=== PATIENT | female | born 1955 | race Caucasian/White ===

== ENCOUNTER 2022-11-09 13:43 | Inpatient (IN) | payer OTHER, MEDICAID ==
[2022-11-09] VITALS (7 sets, daily range): BP systolic 160–183; BP diastolic 90–110; PULSE 68–80; RESP 20–22; TEMP 98–98.1; O2SAT 96
[~2022-11-09] VITALS: Ht 165.1 cm; Wt 80.3 kg
[2022-11-09 14:47] LABS: EOSINOPHILS % 2.1 % (0.0-5.0); HEMATOCRIT. 35.8 % (36.0-48.0); HEMOGLOBIN. 11.5 g/dL (12.0-16.0); LYMPHOCYTES % 19.8 % (20.0-50.0); MEAN CORPUSCULAR HEMOGLOBIN 26.8 pg (28.0-32.0); MEAN CORPUSCULAR VOLUME 83.8 fL (81.0-99.0); MEAN PLATELET VOLUME 8.7 fl (7.4-10.4); MONOCYTES % 8.2 % (2.0-8.0); NEUTROPHILS % 68.9 % (40.0-76.0); PLATELET 164 x1000/uL (130-400); RED BLOOD CELL COUNT 4.27 mill/uL (4.2-5.4); RED CELL DISTRIBUTION WIDTH 20.5 % (11.6-14.6)
[2022-11-09 14:54] LABS: CHLORIDE 94 mEq/L (98-107)
[2022-11-09] MEDS ORDERED: ONDANSETRON HCL 4MG/2ML INJ IV STA (15:38)
[2022-11-09] MEDS ORDERED: SODIUM CHLORIDE 0.9% 1,000 ML IV ONE (15:45)
[2022-11-09] MEDS ORDERED: CALCIUM GLUCONATE 100MG/ML 10ML VIAL IV ONE (15:45)
[2022-11-09] MEDS ORDERED: CEFTRIAXONE 1GM PREMIX 50 ML IV ONE (15:45)
[2022-11-09] MEDS ORDERED: SODIUM BICARBONATE 8.4% 1 MEQ/ML 50ML SYR IV ONE (15:45)
[2022-11-09] MEDS ORDERED: SODIUM POLYSTYRENE SULFONATE 15 G/60 ML BOT PO ONE (15:45)
[2022-11-09] MEDS ORDERED: ALBUTEROL (0.083%) 2.5MG/3ML NEB HHN ONE (15:45)
[2022-11-09] MEDS: MORPHINE SULFATE 4 MG/ML CPJ (NOT FOR IM USE) IV STA ×2 (16:00→16:12)
[2022-11-09] MEDS ORDERED: SODIUM BICARBONATE 8.4% 1 MEQ/ML 50ML SYR IV NR (16:00)
[2022-11-09 16:07] LABS: CLARITY URINE TURBID (CLEAR); COLOR URINE DARK YELLOW (YELLOW); KETONES URINE TRACE (NEGATIVE); LEUKOCYTE ESTERASE URINE 3+ (NEGATIVE); NITRITE URINE NEGATIVE (NEGATIVE); OCCULT BLOOD URINE 3+ (NEGATIVE); PROTEIN URINE 4+ (NEGATIVE); SPECIFIC GRAVITY URINE 1.027 (1.005-1.030)
[2022-11-09 20:09] LABS: HEPATITIS B SURFACE ANTIGEN NEGATIVE
[2022-11-09] MEDS: BLOOD SUGAR DIAGNOSTIC STRIP TEST SCH (21:00)
[2022-11-09] MEDS ORDERED: METO-385 PO (21:47)
[2022-11-09] MEDS ORDERED: MULT-1146 MT (21:49)
[2022-11-09] MEDS ORDERED: LISI20TA31 PO (21:49)
[2022-11-09] MEDS ORDERED: ASPI-1497 PO (21:49)
[2022-11-09] MEDS ORDERED: ACET-2708 PO (21:49)
[2022-11-09] MEDS ORDERED: ZOLP10TA2 PO (21:49)
[2022-11-09] MEDS ORDERED: B CM1TAB PO (21:49)
[2022-11-09] MEDS ORDERED: CEFEPIME 1,000 MG in DEXTROSE 5% WATER 50 ML IV SCH (22:15)
[2022-11-09] MEDS ORDERED: DEXTROSE 50% WATER 50ML SYRINGE IV PRN (22:15)
[2022-11-09] MEDS ORDERED: ACETAMINOPHEN 500MG TABLET PO PRN (22:15)
[2022-11-09] MEDS: DIPHENHYDRAMINE 25MG CAPSULE PO PRN (22:44)
[2022-11-10] VITALS (9 sets, daily range): BP systolic 145–162; BP diastolic 77–96; PULSE 66–89; RESP 16–20; TEMP 96.8–99.1; O2SAT 97
[2022-11-10] MEDS: ZOLPIDEM TARTRATE 5MG TABLET PO PRN ×2 (00:21→21:26)
[2022-11-10] MEDS: INSULIN LISPRO 100 UNITS/ML SUBCUT SCH ×5 (00:22→21:00)
[2022-11-10] MEDS ORDERED: CEFEPIME 1,000 MG in DEXTROSE 5% WATER 50 ML IV SCH (00:30)
[2022-11-10] MEDS: BLOOD SUGAR DIAGNOSTIC STRIP TEST SCH ×4 (06:14→21:26)
[2022-11-10 06:37] LABS: BASOPHILS % 0.6 % (0.0-2.0); EOSINOPHILS % 3.2 % (0.0-5.0); HEMATOCRIT. 31.9 % (36.0-48.0); HEMOGLOBIN. 10.4 g/dL (12.0-16.0); LYMPHOCYTES % 18.2 % (20.0-50.0); MEAN CORPUSCULAR HEMOGLOBIN 27.3 pg (28.0-32.0); MEAN CORPUSCULAR VOLUME 83.9 fL (81.0-99.0); MEAN PLATELET VOLUME 8.8 fl (7.4-10.4); MONOCYTES % 7.8 % (2.0-8.0); NEUTROPHILS % 70.2 % (40.0-76.0); PLATELET 144 x1000/uL (130-400); RED CELL DISTRIBUTION WIDTH 20.2 % (11.6-14.6)
[2022-11-10] MEDS ORDERED: BLOOD SUGAR DIAGNOSTIC STRIP TEST SCH (07:10)
[2022-11-10] MEDS ORDERED: INSULIN LISPRO 100 UNITS/ML SUBCUT SCH (07:40)
[2022-11-10] MEDS ORDERED: LISINOPRIL 20MG TABLET PO SCH (09:00)
[2022-11-10] MEDS: METOPROLOL SUCCINATE 50MG ER TABLET PO SCH ×2 (09:00→18:14)
[2022-11-10] MEDS ORDERED: ASPIRIN 81MG EC TABLET PO SCH (09:00)
[2022-11-10] MEDS: DIPHENHYDRAMINE 25MG CAPSULE PO PRN ×3 (09:00→21:26)
[2022-11-10] MEDS ORDERED: FLUCONAZOLE 200MG/100ML PREMIX IV ONE (11:15)
[2022-11-10] MEDS ORDERED: DOCUSATE SODIUM 100MG CAPSULE PO PRN (11:15)
[2022-11-10] MEDS ORDERED: IPRATROPIUM/ALBUTEROL 0.5-3(2.5)MG/3ML NEB HHN PRN (11:15)
[2022-11-10] MEDS ORDERED: FLUCONAZOLE 200 MG/100ML BAG 100 ML IV NR (13:00)
[2022-11-10] MEDS: PIPERACILLIN/TAZOBACTAM 3.375 G in DEXTROSE 5% WATER 50 ML IV SCH ×2 (14:31→21:26)
[2022-11-10 17:31] LABS: INR 1.2; PARTIAL THROMBOPLASTIN TIME 27.3 sec (23.4-31.0); PROTHROMBIN TIME 12.3 sec (9.6-11.0)
[2022-11-11] VITALS (23 sets, daily range): BP systolic 122–163; BP diastolic 72–100; PULSE 65–87; RESP 12–20; TEMP 96.4–98.2
[2022-11-11] MEDS: BLOOD SUGAR DIAGNOSTIC STRIP TEST SCH ×4 (06:30→21:05)
[2022-11-11] MEDS: INSULIN LISPRO 100 UNITS/ML SUBCUT SCH ×4 (06:30→21:04)
[2022-11-11 07:07] LABS: BASOPHILS % 0.8 % (0.0-2.0); HEMATOCRIT. 33.4 % (36.0-48.0); HEMOGLOBIN. 10.8 g/dL (12.0-16.0); LYMPHOCYTES % 21.5 % (20.0-50.0); MEAN CORPUSCULAR HEMOGLOBIN 27.1 pg (28.0-32.0); MEAN CORPUSCULAR VOLUME 83.6 fL (81.0-99.0); MEAN PLATELET VOLUME 8.7 fl (7.4-10.4); MONOCYTES % 8.5 % (2.0-8.0); NEUTROPHILS % 62.2 % (40.0-76.0); PLATELET 150 x1000/uL (130-400); RED BLOOD CELL COUNT 3.99 mill/uL (4.2-5.4); RED CELL DISTRIBUTION WIDTH 20.5 % (11.6-14.6)
[2022-11-11] MEDS ORDERED: LIDOCAINE HCL 1% 10 MG/ML 10ML VIAL ONE (08:24)
[2022-11-11] MEDS: PIPERACILLIN/TAZOBACTAM 3.375 G in DEXTROSE 5% WATER 50 ML IV SCH ×2 (09:15→20:51)
[2022-11-11] MEDS ORDERED: FENTANYL CITRATE/PF 50MCG/ML 2ML VIAL IV NR (09:56)
[2022-11-11] MEDS ORDERED: FENTANYL CITRATE/PF 50MCG/ML 2ML VIAL ONE (09:56)
[2022-11-11] MEDS: METOPROLOL SUCCINATE 50MG ER TABLET PO SCH ×2 (12:42→20:50)
[2022-11-11] MEDS: DIPHENHYDRAMINE 25MG CAPSULE PO PRN ×2 (13:47→21:05)
[2022-11-11] MEDS: ACETAMINOPHEN 325MG TABLET PO PRN ×2 (13:47→18:54)
[2022-11-11] MEDS: ZOLPIDEM TARTRATE 5MG TABLET PO PRN (20:50)
[2022-11-12] VITALS: BP 149/80; PULSE 88; RESP 20; TEMP 98
[2022-11-12 04:00] VITALS: BP 156/83; PULSE 68; RESP 18; TEMP 97.8
[2022-11-12] MEDS: DIPHENHYDRAMINE 25MG CAPSULE PO PRN ×3 (06:00→20:38)
[2022-11-12] MEDS: ACETAMINOPHEN 325MG TABLET PO PRN ×3 (06:00→20:29)
[2022-11-12] MEDS: INSULIN LISPRO 100 UNITS/ML SUBCUT SCH ×4 (06:03→21:00)
[2022-11-12] MEDS: BLOOD SUGAR DIAGNOSTIC STRIP TEST SCH ×4 (06:03→20:37)
[2022-11-12 08:00] VITALS: BP 146/93; PULSE 62; RESP 18; TEMP 96.8
[2022-11-12] MEDS: PIPERACILLIN/TAZOBACTAM 3.375 G in DEXTROSE 5% WATER 50 ML IV SCH (08:51)
[2022-11-12] MEDS: METOPROLOL SUCCINATE 50MG ER TABLET PO SCH ×2 (08:54→20:37)
[2022-11-12 12:00] VITALS: BP 150/85; PULSE 67; RESP 22; TEMP 96.6
[2022-11-12] MEDS ORDERED: HYDRALAZINE 20MG/ML VIAL IV NR (12:00)
[2022-11-12] MEDS: SEVELAMER CARBONATE 800 MG TABLET PO SCH ×2 (12:53→18:37)
[2022-11-12] MEDS ORDERED: CEFTRIAXONE 1GM PREMIX 50 ML IV SCH (15:00)
[2022-11-12] MEDS ORDERED: SODIUM POLYSTYRENE SULFONATE 15 G/60 ML BOT PO NR (15:30)
[2022-11-12 15:42] LABS: BG BASE EXCESS -4.6 mmol/L (-2.0-2.0); BG CARBOXYHEMOGLOBIN 1.6 % (0.5-1.5); BG DEOXYHEMOGLOBIN 4.3 % (0.0-5.0); BG HCO3 ACT 19.5 mmol/L (22.0-26.0); BG METHEMOGLOBIN 0.3 % (0.0-1.5); BG OXYGEN SATURATION 95.6 % (92.0-98.5); BG OXYHEMOGLOBIN 93.8 % (94.0-97.0); BG PCO2 33.1 mmHg (35.0-45.0); BG PH 7.387 (7.350-7.450); BG PO2 81.4 mmHg (75.0-100.0); BG SAMPLE SITE RIGHT BRACHIAL; BG TOTAL HEMOGLOBIN 13.1 g/dL (12.0-18.0); BG VENT MODE ROOM AIR
[2022-11-12 16:00] VITALS: BP 153/91; PULSE 62; RESP 20; TEMP 97
[2022-11-12 16:06] LABS: EOSINOPHILS % 5.8 % (0.0-5.0); HEMATOCRIT. 34.4 % (36.0-48.0); HEMOGLOBIN. 11.2 g/dL (12.0-16.0); MEAN CORPUSCULAR HEMOGLOBIN 27.6 pg (28.0-32.0); MEAN CORPUSCULAR VOLUME 84.9 fL (81.0-99.0); MEAN PLATELET VOLUME 8.6 fl (7.4-10.4); MONOCYTES % 9.8 % (2.0-8.0); NEUTROPHILS % 58.4 % (40.0-76.0); PLATELET 148 x1000/uL (130-400); RED BLOOD CELL COUNT 4.05 mill/uL (4.2-5.4); RED CELL DISTRIBUTION WIDTH 20.4 % (11.6-14.6)
[2022-11-12 20:00] VITALS: BP 150/97; PULSE 66; RESP 16; TEMP 97.4
[2022-11-12] MEDS: ZOLPIDEM TARTRATE 5MG TABLET PO PRN (20:38)
[2022-11-12] MEDS: ONDANSETRON HCL 4MG/2ML INJ IV PRN (20:42)
[2022-11-12] MEDS ORDERED: CEFEPIME 1,000 MG in DEXTROSE 5% WATER 50 ML IV SCH (21:00)
[2022-11-13] VITALS (9 sets, daily range): BP systolic 135–168; BP diastolic 80–108; PULSE 62–85; RESP 16–20; TEMP 96.9–98; O2SAT 97
[2022-11-13] MEDS: BLOOD SUGAR DIAGNOSTIC STRIP TEST SCH ×2 (06:00→12:34)
[2022-11-13] MEDS: INSULIN LISPRO 100 UNITS/ML SUBCUT SCH ×2 (06:00→12:34)
[2022-11-13] MEDS: SEVELAMER CARBONATE 800 MG TABLET PO SCH ×3 (07:40→12:36)
[2022-11-13 07:51] LABS: BASOPHILS % 0.9 % (0.0-2.0); EOSINOPHILS % 6.4 % (0.0-5.0); HEMATOCRIT. 35.7 % (36.0-48.0); HEMOGLOBIN. 11.7 g/dL (12.0-16.0); LYMPHOCYTES % 33.3 % (20.0-50.0); MEAN CORPUSCULAR HEMOGLOBIN 27.6 pg (28.0-32.0); MEAN CORPUSCULAR VOLUME 84.3 fL (81.0-99.0); MEAN PLATELET VOLUME 8.8 fl (7.4-10.4); MONOCYTES % 9.1 % (2.0-8.0); NEUTROPHILS % 50.3 % (40.0-76.0); PLATELET 148 x1000/uL (130-400); RED BLOOD CELL COUNT 4.24 mill/uL (4.2-5.4); RED CELL DISTRIBUTION WIDTH 19.8 % (11.6-14.6)
[2022-11-13] MEDS: ONDANSETRON HCL 4MG/2ML INJ IV PRN (08:05)
[2022-11-13] MEDS: METOPROLOL SUCCINATE 50MG ER TABLET PO SCH (10:00)
[2022-11-13] MEDS ORDERED: LEVO250T74 MT (13:15)
== END 2022-11-13 16:30 | disposition home or self-care (01) | DRG 673 ==
LOC: ER 13:43 → 8WST 18:51 → EDBEDREQTM 19:02 → EDBEDREQ 19:02 → ENRESERV 19:35
PROVIDERS: ADMIT Internal Medicine; ATTEND Internal Medicine
PROC: 5A1D70Z Performance of Urinary Filtration, Intermittent, Less than 6 Hours Per Day (ICD-10-PCS; 2022-11-09)
PROC: 5A1D70Z Performance of Urinary Filtration, Intermittent, Less than 6 Hours Per Day (ICD-10-PCS; 2022-11-10)
PROC: 0JH63XZ Insertion of Tunneled Vascular Access Device into Chest Subcutaneous Tissue and Fascia, Percutaneous Approach (ICD-10-PCS; principal; 2022-11-11)
PROC: 02HV33Z Insertion of Infusion Device into Superior Vena Cava, Percutaneous Approach (ICD-10-PCS; 2022-11-11)
PROC: B5181ZA Fluoroscopy of Superior Vena Cava using Low Osmolar Contrast, Guidance (ICD-10-PCS; 2022-11-11)
PROC: 5A1D70Z Performance of Urinary Filtration, Intermittent, Less than 6 Hours Per Day (ICD-10-PCS; 2022-11-12)
DX: I12.0 Hypertensive chronic kidney disease with stage 5 chronic kidney disease or end stage renal disease (principal); N18.6 End stage renal disease; N13.6 Pyonephrosis; E87.1 Hypo-osmolality and hyponatremia; E87.20 Acidosis, unspecified; E87.5 Hyperkalemia; E11.22 Type 2 diabetes mellitus with diabetic chronic kidney disease; E87.8 Other disorders of electrolyte and fluid balance, not elsewhere classified; E78.00 Pure hypercholesterolemia, unspecified; J44.9 Chronic obstructive pulmonary disease, unspecified; Z90.49 Acquired absence of other specified parts of digestive tract; Z99.2 Dependence on renal dialysis
CPT/HCPCS: 36415; 36558; 36589; 36600; 71045; 74176; 77001; 80048; 80053; 80061; 81003; 82375; 82805; 82962; 83036; 83605; 83880; 84100; 84132; 84145; 84484; 85025; 86705; 86709; 86803; 87186; 87340; 90935; 93306; 94640; 94644; 99152; 99153; 99291; C1750; C1769; J0360; J0610; J0692; J0696; J1450; J1642; J1815; J2270; J2405; J2543; J3010; J3490; J7030; J7060; Q0163; G0500

== ENCOUNTER 2023-04-26 12:55 | Inpatient (IN) | payer MEDICARE, MEDICAID ==
[~2023-04-26] VITALS: Ht 165.1 cm; Wt 77.3 kg
[~2023-04-26 12:55] MED LIST: ACET-2708 PO; ASPI-1497 PO; B CM1TAB PO; LEVO250T74 MT; LISI20TA31 PO; METO-385 PO; MULT-1146 MT; ZOLP10TA2 PO
[2023-04-26 17:22] LABS: BASOPHILS % 0.6 % (0.0-2.0); EOSINOPHILS % 2.8 % (0.0-5.0); HEMOGLOBIN. 11.7 g/dL (12.0-16.0); LYMPHOCYTES % 16.3 % (20.0-50.0); MEAN CORPUSCULAR HEMOGLOBIN 30.1 pg (28.0-32.0); MEAN CORPUSCULAR HGB CONC 32.4 g/dL (31.0-37.0); MEAN CORPUSCULAR VOLUME 93.1 fL (81.0-99.0); MEAN PLATELET VOLUME 8.3 fl (7.4-10.4); MONOCYTES % 8.5 % (2.0-8.0); NEUTROPHILS % 71.8 % (40.0-76.0); PLATELET 175 x1000/uL (130-400); RED BLOOD CELL COUNT 3.87 mill/uL (4.2-5.4); WHITE BLOOD COUNT 8.3 x1000/uL (4.5-11.0)
[2023-04-26 17:40] LABS: ALANINE AMINOTRANSFERASE 44 IU/L (10-49); ALBUMIN 4.3 g/dL (3.2-4.8); ASPARTATE AMINOTRANSFERASE 46 IU/L (<34); BILIRUBIN TOTAL 0.4 mg/dL (0.1-1.0); CALCIUM 9.2 mg/dL (8.7-10.4); CARBON DIOXIDE 28 mEq/L (21-32); CHLORIDE 96 mEq/L (98-107); CREATININE 4.5 mg/dL (0.6-1.0); GLUCOSE 229 mg/dL (70-105); POTASSIUM 5.5 mEq/L (3.5-5.1); PROTEIN TOTAL 7.2 g/dL (6.0-8.3); SODIUM 133 mEq/L (136-145); TROPONIN I HIGH SENSITIVITY 19 ng/L (3.0-34); UREA NITROGEN BLOOD 46 mg/dL (9-23)
[2023-04-27] VITALS (12 sets, daily range): BP systolic 144–191; BP diastolic 78–109; PULSE 60–88; RESP 14–21; TEMP 96.7–98.8
[2023-04-27] MEDS ORDERED: DEXTROSE 50% WATER 50ML SYRINGE IV PRN ×2 (04:15→05:45)
[2023-04-27] MEDS: CLONIDINE 0.1MG TABLET PO PRN ×2 (04:38→23:00)
[2023-04-27] MEDS: HYDROCODONE/ACETAMINOPHEN 5/325MG TABLET PO PRN ×2 (04:39→13:13)
[2023-04-27] MEDS ORDERED: ONDANSETRON HCL 4MG/2ML INJ IV PRN (05:45)
[2023-04-27] MEDS ORDERED: MAGNESIUM/ALUMINUM HYDROXIDE/SIMETHICONE 30ML UDC PO PRN (05:45)
[2023-04-27] MEDS: BLOOD SUGAR DIAGNOSTIC STRIP TEST SCH ×3 (06:34→21:00)
[2023-04-27] MEDS ORDERED: OMEPRAZOLE 20MG CAPSULE EXTENDED RELEASE PO SCH (07:20)
[2023-04-27] MEDS: INSULIN LISPRO 100 UNITS/ML SUBCUT SCH ×3 (07:50→21:00)
[2023-04-27 09:16] LABS: BASOPHILS % 0.7 % (0.0-2.0); EOSINOPHILS % 3.1 % (0.0-5.0); HEMATOCRIT. 34.1 % (36.0-48.0); HEMOGLOBIN. 11.2 g/dL (12.0-16.0); LYMPHOCYTES % 25.8 % (20.0-50.0); MEAN CORPUSCULAR HEMOGLOBIN 30.4 pg (28.0-32.0); MEAN CORPUSCULAR HGB CONC 32.8 g/dL (31.0-37.0); MEAN CORPUSCULAR VOLUME 92.9 fL (81.0-99.0); MEAN PLATELET VOLUME 8.1 fl (7.4-10.4); MONOCYTES % 11.3 % (2.0-8.0); NEUTROPHILS % 59.1 % (40.0-76.0); PLATELET 152 x1000/uL (130-400); RED BLOOD CELL COUNT 3.67 mill/uL (4.2-5.4); RED CELL DISTRIBUTION WIDTH 15.7 % (11.6-14.6); WHITE BLOOD COUNT 7.8 x1000/uL (4.5-11.0)
[2023-04-27] MEDS: ENOXAPARIN 30MG/0.3ML SYR SUBCUT SCH (09:30)
[2023-04-27 09:31] LABS: ALANINE AMINOTRANSFERASE 39 IU/L (10-49); ALBUMIN 3.9 g/dL (3.2-4.8); ASPARTATE AMINOTRANSFERASE 37 IU/L (<34); BILIRUBIN TOTAL 0.3 mg/dL (0.1-1.0); CALCIUM 8.6 mg/dL (8.7-10.4); CARBON DIOXIDE 27 mEq/L (21-32); CHLORIDE 96 mEq/L (98-107); GLUCOSE 208 mg/dL (70-105); POTASSIUM 5.7 mEq/L (3.5-5.1); PROTEIN TOTAL 7.3 g/dL (6.0-8.3); SODIUM 132 mEq/L (136-145); UREA NITROGEN BLOOD 63 mg/dL (9-23)
[2023-04-27 09:35] LABS: CREATININE 5.6 mg/dL (0.6-1.0)
[2023-04-27] MEDS ORDERED: ZOLPIDEM TARTRATE 5MG TABLET PO PRN ×2 (11:00→12:15)
[2023-04-27] MEDS ORDERED: NALOXONE HCL 0.4MG/ML VIAL IV PRN (16:45)
[2023-04-27 17:03] LABS: HEPATITIS A AB IGM NEGATIVE (Negative); HEPATITIS B CORE AB IGM NEGATIVE (Negative); HEPATITIS B SURFACE ANTIGEN NEGATIVE (Negative); HEPATITIS C AB NON REACTIVE (Neg) (Negative)
[2023-04-27] MEDS ORDERED: DIPHENHYDRAMINE 50MG/ML VIAL IV NR (22:56)
[2023-04-27] MEDS: ACETAMINOPHEN 325MG TABLET PO PRN (23:00)
[2023-04-28 04:00] VITALS: BP 147/89; PULSE 67; RESP 15; TEMP 97.5
[2023-04-28] MEDS: BLOOD SUGAR DIAGNOSTIC STRIP TEST SCH ×3 (07:20→21:18)
[2023-04-28 07:27] LABS: BASOPHILS % 0.8 % (0.0-2.0); EOSINOPHILS % 6.9 % (0.0-5.0); HEMATOCRIT. 31.1 % (36.0-48.0); HEMOGLOBIN. 10.3 g/dL (12.0-16.0); LYMPHOCYTES % 26.7 % (20.0-50.0); MEAN CORPUSCULAR HEMOGLOBIN 30.7 pg (28.0-32.0); MEAN CORPUSCULAR HGB CONC 33.2 g/dL (31.0-37.0); MEAN CORPUSCULAR VOLUME 92.3 fL (81.0-99.0); MEAN PLATELET VOLUME 8.7 fl (7.4-10.4); MONOCYTES % 9.8 % (2.0-8.0); NEUTROPHILS % 55.8 % (40.0-76.0); PLATELET 133 x1000/uL (130-400); RED BLOOD CELL COUNT 3.36 mill/uL (4.2-5.4); RED CELL DISTRIBUTION WIDTH 15.4 % (11.6-14.6); WHITE BLOOD COUNT 6.4 x1000/uL (4.5-11.0)
[2023-04-28 08:00] VITALS: BP 141/77; PULSE 72; RESP 17; TEMP 97.9
[2023-04-28] MEDS: INSULIN LISPRO 100 UNITS/ML SUBCUT SCH ×3 (08:50→21:46)
[2023-04-28] MEDS: ENOXAPARIN 30MG/0.3ML SYR SUBCUT SCH (09:22)
[2023-04-28] MEDS: ASPIRIN 81MG EC TABLET PO SCH (09:22)
[2023-04-28] MEDS: MULTIVITAMINS,THER W-MINERALS TABLET PO SCH (09:22)
[2023-04-28 12:00] VITALS: BP 140/89; PULSE 67; RESP 18; TEMP 97.7
[2023-04-28 15:21] LABS: ALANINE AMINOTRANSFERASE 31 IU/L (10-49); ALBUMIN 3.5 g/dL (3.2-4.8); ASPARTATE AMINOTRANSFERASE 26 IU/L (<34); BILIRUBIN DIRECT 0.2 mg/dL (<=3.0); BILIRUBIN TOTAL 0.3 mg/dL (0.1-1.0); CARBON DIOXIDE 26 mEq/L (21-32); CHLORIDE 98 mEq/L (98-107); CHOLESTEROL 90 mg/dL (<200); GLUCOSE 214 mg/dL (70-105); HDL CHOLESTEROL 39 mg/dL (>65); LDL CHOLESTEROL 40 mg/dL (5-100); PHOSPHORUS 4.7 mg/dL (2.5-4.9); POTASSIUM 5.5 mEq/L (3.5-5.1); PROTEIN TOTAL 6.5 g/dL (6.0-8.3); SODIUM 134 mEq/L (136-145); T4 FREE 0.34 ng/dL (0.89-1.76); THYROID STIMULATING HORMONE 147.83 uIU/mL (0.55-4.78); TRIGLYCERIDE 110 mg/dL (0-150); TROPONIN I HIGH SENSITIVITY 16 ng/L (3.0-34); UREA NITROGEN BLOOD 66 mg/dL (9-23)
[2023-04-28 15:24] LABS: CREATININE 5.5 mg/dL (0.6-1.0)
[2023-04-28 16:00] VITALS: BP 158/95; PULSE 74; RESP 18; TEMP 97.6
[2023-04-28 20:00] VITALS: BP 173/96; PULSE 89; RESP 20; TEMP 96.5
[2023-04-28] MEDS: CLONIDINE 0.1MG TABLET PO PRN (21:32)
[2023-04-28] MEDS: ZOLPIDEM TARTRATE 5MG TABLET PO PRN (21:33)
[2023-04-28] MEDS: ACETAMINOPHEN 325MG TABLET PO PRN (21:33)
[2023-04-29] VITALS (12 sets, daily range): BP systolic 137–168; BP diastolic 78–111; PULSE 63–79; RESP 16–20; TEMP 96.2–98.4
[2023-04-29 07:47] LABS: BASOPHILS % 0.3 % (0.0-2.0); EOSINOPHILS % 6.4 % (0.0-5.0); HEMATOCRIT. 32.5 % (36.0-48.0); HEMOGLOBIN. 10.7 g/dL (12.0-16.0); LYMPHOCYTES % 21.4 % (20.0-50.0); MEAN CORPUSCULAR HEMOGLOBIN 30.6 pg (28.0-32.0); MEAN CORPUSCULAR VOLUME 92.6 fL (81.0-99.0); MONOCYTES % 9.2 % (2.0-8.0); NEUTROPHILS % 62.7 % (40.0-76.0); PLATELET 146 x1000/uL (130-400); RED BLOOD CELL COUNT 3.51 mill/uL (4.2-5.4); RED CELL DISTRIBUTION WIDTH 15.7 % (11.6-14.6); WHITE BLOOD COUNT 6.7 x1000/uL (4.5-11.0)
[2023-04-29] MEDS: INSULIN LISPRO 100 UNITS/ML SUBCUT SCH ×4 (07:50→21:00)
[2023-04-29] MEDS: BLOOD SUGAR DIAGNOSTIC STRIP TEST SCH ×4 (07:57→21:00)
[2023-04-29 08:55] LABS: CALCIUM 8.6 mg/dL (8.7-10.4); POTASSIUM 5.4 mEq/L (3.5-5.1)
[2023-04-29] MEDS ORDERED: FAMOTIDINE 20MG TABLET PO SCH (09:00)
[2023-04-29 09:09] LABS: CREATININE 5.5 mg/dL (0.6-1.0)
[2023-04-29] MEDS: MULTIVITAMINS,THER W-MINERALS TABLET PO SCH (09:28)
[2023-04-29] MEDS: ASPIRIN 81MG EC TABLET PO SCH (09:28)
[2023-04-29] MEDS: ENOXAPARIN 30MG/0.3ML SYR SUBCUT SCH (09:29)
[2023-04-29] MEDS: HYDROCODONE/ACETAMINOPHEN 5/325MG TABLET PO PRN (12:36)
[2023-04-29] MEDS: CLONIDINE 0.1MG TABLET PO PRN (22:27)
[2023-04-30] VITALS: BP 170/92; PULSE 61; RESP 16; TEMP 97.1
[2023-04-30] MEDS: ZOLPIDEM TARTRATE 5MG TABLET PO PRN (00:11)
[2023-04-30 08:00] VITALS: BP 175/106; PULSE 83; RESP 19; TEMP 96.4
[2023-04-30] MEDS: ASPIRIN 81MG EC TABLET PO SCH (09:29)
[2023-04-30] MEDS: MULTIVITAMINS,THER W-MINERALS TABLET PO SCH (09:29)
[2023-04-30] MEDS: ENOXAPARIN 30MG/0.3ML SYR SUBCUT SCH (09:30)
[2023-04-30 10:51] VITALS: BP 144/87; PULSE 87; TEMP 98.8; O2SAT 98
[2023-04-30 12:00] VITALS: BP 148/91; PULSE 71; RESP 19; TEMP 97.7
== END 2023-04-30 14:47 | disposition home health service (06) | DRG 73 ==
LOC: ER 12:55 → EDBEDREQ 21:44 → EDBEDREQTM 21:44 → MICUSO 23:18 → 6EST 04-27 00:22
PROVIDERS: ADMIT Internal Medicine Nephrology; ATTEND Internal Medicine Nephrology
PROC: 5A1D70Z Performance of Urinary Filtration, Intermittent, Less than 6 Hours Per Day (ICD-10-PCS; principal; 2023-04-27)
PROC: 5A1D70Z Performance of Urinary Filtration, Intermittent, Less than 6 Hours Per Day (ICD-10-PCS; 2023-04-29)
DX: G90.8 Other disorders of autonomic nervous system (principal); N18.6 End stage renal disease; I12.0 Hypertensive chronic kidney disease with stage 5 chronic kidney disease or end stage renal disease; H93.11 Tinnitus, right ear; E78.00 Pure hypercholesterolemia, unspecified; E11.65 Type 2 diabetes mellitus with hyperglycemia; D63.8 Anemia in other chronic diseases classified elsewhere; E11.22 Type 2 diabetes mellitus with diabetic chronic kidney disease; E87.5 Hyperkalemia; F41.9 Anxiety disorder, unspecified; H54.61 Unqualified visual loss, right eye, normal vision left eye; Z86.73 Personal history of transient ischemic attack (TIA), and cerebral infarction without residual deficits; Z91.81 History of falling; Z99.2 Dependence on renal dialysis
CPT/HCPCS: 36415; 70551; 71045; 80048; 80053; 80061; 80076; 82962; 83036; 83735; 84100; 84439; 84443; 84484; 85025; 86705; 86709; 87340; 90935; 93005; 93306; 93970; 97110; 97116; 97162; 99291; J1200; J1650; J1815

== ENCOUNTER 2023-05-26 15:35 | Inpatient (IN) | payer MEDICARE, MEDICAID ==
[~2023-05-26] VITALS: Ht 165.1 cm; Wt 79.4 kg
[2023-05-26 17:50] LABS: BASOPHILS % 0.4 % (0.0-2.0); EOSINOPHILS % 3.6 % (0.0-5.0); HEMATOCRIT. 35.9 % (36.0-48.0); HEMOGLOBIN. 11.4 g/dL (12.0-16.0); LYMPHOCYTES % 15.4 % (20.0-50.0); MEAN CORPUSCULAR HEMOGLOBIN 30.5 pg (28.0-32.0); MEAN CORPUSCULAR HGB CONC 31.6 g/dL (31.0-37.0); MEAN CORPUSCULAR VOLUME 96.2 fL (81.0-99.0); MEAN PLATELET VOLUME 8.6 fl (7.4-10.4); MONOCYTES % 8.2 % (2.0-8.0); NEUTROPHILS % 72.4 % (40.0-76.0); PLATELET 168 x1000/uL (130-400); RED BLOOD CELL COUNT 3.73 mill/uL (4.2-5.4); RED CELL DISTRIBUTION WIDTH 16.8 % (11.6-14.6); WHITE BLOOD COUNT 10.7 x1000/uL (4.5-11.0)
[2023-05-26 18:05] LABS: ALANINE AMINOTRANSFERASE 31 IU/L (10-49); ALBUMIN 3.9 g/dL (3.2-4.8); ASPARTATE AMINOTRANSFERASE 51 IU/L (<34); BILIRUBIN TOTAL 0.4 mg/dL (0.1-1.0); CALCIUM 8.6 mg/dL (8.7-10.4); CARBON DIOXIDE 25 mEq/L (21-32); CHLORIDE 94 mEq/L (98-107); GLUCOSE 213 mg/dL (70-105); POTASSIUM 5.2 mEq/L (3.5-5.1); PROTEIN TOTAL 7.5 g/dL (6.0-8.3); SODIUM 131 mEq/L (136-145); UREA NITROGEN BLOOD 60 mg/dL (9-23)
[2023-05-26 18:10] LABS: CREATININE 5.4 mg/dL (0.6-1.0)
[2023-05-26] MEDS ORDERED: OXYCODONE HCL/ACETAMINOPHEN 5/325MG TABLET PO ONE (19:45)
[2023-05-26] MEDS ORDERED: VANCOMYCIN 1.25GM PMX (XELLIA) 250 ML IV SCH (19:45)
[2023-05-26] MEDS ORDERED: FUROSEMIDE 100MG/10ML VIAL IV STA (20:11)
[2023-05-26] MEDS ORDERED: FUROSEMIDE 40MG TABLET PO ONE (20:15)
[2023-05-26] MEDS ORDERED: ALBUTEROL (0.083%) 2.5MG/3ML NEB HHN ONE (20:15)
[2023-05-26] MEDS ORDERED: SODIUM POLYSTYRENE SULFONATE 15 G/60 ML BOT PO ONE (20:15)
[2023-05-26] MEDS ORDERED: FUROSEMIDE 40MG/4ML VIAL IV NR (20:45)
[2023-05-26] MEDS ORDERED: ONDANSETRON HCL 4MG/2ML INJ IV PRN (22:00)
[2023-05-26] MEDS ORDERED: IPRATROPIUM/ALBUTEROL 0.5-3(2.5)MG/3ML NEB NEB PRN (22:00)
[2023-05-26] MEDS: ENOXAPARIN 40MG/0.4ML SYR SUBCUT SCH (22:00)
[2023-05-26] MEDS ORDERED: MECLIZINE 25MG TABLET PO PRN (22:00)
[2023-05-26] MEDS ORDERED: MVI, ADULT NO.1 10 ML, FOLIC ACID 1 MG, THIAMINE HCL 100 MG in SODIUM CHLORIDE 0.9% 1,0... IV SCH ×4 (23:00)
[2023-05-27] VITALS (11 sets, daily range): BP systolic 132–178; BP diastolic 82–100; PULSE 65–77; RESP 18–20; TEMP 96.6–97.4
[2023-05-27] MEDS ORDERED: METFORMIN HCL 500MG TABLET PO ONE (01:00)
[2023-05-27] MEDS ORDERED: METOPROLOL TARTRATE 50MG TABLET PO ONE (01:00)
[2023-05-27] MEDS ORDERED: FUROSEMIDE 100MG/10ML VIAL IV NR (02:15)
[2023-05-27] MEDS ORDERED: OXYCODONE HCL/ACETAMINOPHEN 5/325MG TABLET PO NR (02:15)
[2023-05-27] MEDS ORDERED: METOPROLOL TARTRATE 50MG TABLET PO NR (02:15)
[2023-05-27] MEDS ORDERED: SODIUM POLYSTYRENE SULFONATE 15 G/60 ML BOT PO NR (02:15)
[2023-05-27] MEDS: MORPHINE SULFATE 2 MG/ML CPJ (NOT FOR IM USE) IV PRN ×3 (02:44→08:43)
[2023-05-27] MEDS ORDERED: NALOXONE HCL 0.4MG/ML VIAL IV PRN (07:30)
[2023-05-27] MEDS ORDERED: VANCOMYCIN 750MG PREMIX 150 ML IV SCH (21:00)
[2023-05-27 22:19] LABS: HEPATITIS A AB IGM NEGATIVE (Negative); HEPATITIS B CORE AB IGM NEGATIVE (Negative); HEPATITIS B SURFACE ANTIGEN NEGATIVE (Negative); HEPATITIS C AB NON REACTIVE (Neg) (Negative)
[2023-05-27] MEDS: ENOXAPARIN 40MG/0.4ML SYR SUBCUT SCH (22:20)
[2023-05-27] MEDS: HYDROCODONE/ACETAMINOPHEN 5/325MG TABLET PO PRN (22:20)
[2023-05-28] VITALS (16 sets, daily range): BP systolic 133–176; BP diastolic 71–104; PULSE 64–84; RESP 16–20; TEMP 96.1–98.7
[2023-05-28] MEDS ORDERED: CLONIDINE 0.1MG TABLET PO NR (00:45)
[2023-05-28] MEDS: HYDROCODONE/ACETAMINOPHEN 5/325MG TABLET PO PRN ×2 (14:30→22:47)
[2023-05-28] MEDS: ACETAMINOPHEN 325MG TABLET PO PRN (16:24)
[2023-05-28] MEDS: ENOXAPARIN 40MG/0.4ML SYR SUBCUT SCH (21:57)
[2023-05-29] VITALS (7 sets, daily range): BP systolic 109–177; BP diastolic 76–100; PULSE 62–79; RESP 18–20; TEMP 96.6–98.4
[2023-05-29 08:17] LABS: BASOPHILS % 0.5 % (0.0-2.0); EOSINOPHILS % 5.1 % (0.0-5.0); HEMATOCRIT. 31.8 % (36.0-48.0); HEMOGLOBIN. 10.5 g/dL (12.0-16.0); LYMPHOCYTES % 17.6 % (20.0-50.0); MEAN CORPUSCULAR HEMOGLOBIN 30.5 pg (28.0-32.0); MEAN CORPUSCULAR VOLUME 92.5 fL (81.0-99.0); MEAN PLATELET VOLUME 8.5 fl (7.4-10.4); MONOCYTES % 8.6 % (2.0-8.0); NEUTROPHILS % 68.2 % (40.0-76.0); PLATELET 151 x1000/uL (130-400); RED BLOOD CELL COUNT 3.44 mill/uL (4.2-5.4); RED CELL DISTRIBUTION WIDTH 16.6 % (11.6-14.6); WHITE BLOOD COUNT 7.5 x1000/uL (4.5-11.0)
[2023-05-29 09:22] LABS: CALCIUM 7.6 mg/dL (8.7-10.4); CARBON DIOXIDE 19 mEq/L (21-32); CHLORIDE 98 mEq/L (98-107); GLUCOSE 203 mg/dL (70-105); PHOSPHORUS 3.6 mg/dL (2.5-4.9); POTASSIUM 4.2 mEq/L (3.5-5.1); SODIUM 135 mEq/L (136-145); UREA NITROGEN BLOOD 59 mg/dL (9-23)
[2023-05-29 09:43] LABS: CREATININE 5.1 mg/dL (0.6-1.0)
[2023-05-29] MEDS: ACETAMINOPHEN 325MG TABLET PO PRN (10:01)
[2023-05-29] MEDS: LISINOPRIL 20MG TABLET PO SCH (12:15)
[2023-05-29] MEDS ORDERED: ACETAMINOPHEN 500MG TABLET PO PRN (12:15)
[2023-05-29] MEDS: ASPIRIN 81MG EC TABLET PO SCH (12:15)
[2023-05-29] MEDS: METOPROLOL TARTRATE 50MG TABLET PO SCH ×2 (14:00→21:08)
[2023-05-29] MEDS: SILVER SULFADIAZINE 1% CREAM 50GM TOP SCH ×2 (15:19→21:00)
[2023-05-29] MEDS: HYDROCODONE/ACETAMINOPHEN 5/325MG TABLET PO PRN (15:23)
[2023-05-29 17:10] LABS: PHOSPHORUS 3.5 mg/dL (2.5-4.9)
[2023-05-29] MEDS ORDERED: METOPROLOL TARTRATE 25MG TABLET PO SCH (21:00)
[2023-05-29] MEDS: ENOXAPARIN 40MG/0.4ML SYR SUBCUT SCH (21:04)
[2023-05-30] VITALS: BP 158/63; PULSE 66; RESP 20; TEMP 97.9
[2023-05-30 04:00] VITALS: BP 115/79; PULSE 66; RESP 18; TEMP 97.5
[2023-05-30] MEDS: LISINOPRIL 20MG TABLET PO SCH (09:00)
[2023-05-30] MEDS: ASPIRIN 81MG EC TABLET PO SCH (09:00)
[2023-05-30] MEDS: METOPROLOL TARTRATE 50MG TABLET PO SCH (09:00)
[2023-05-30] MEDS: SILVER SULFADIAZINE 1% CREAM 50GM TOP SCH ×2 (09:00→21:09)
[2023-05-30] MEDS: HYDROCODONE/ACETAMINOPHEN 5/325MG TABLET PO PRN (11:28)
[2023-05-30 12:00] VITALS: BP 150/100; PULSE 70; RESP 18; TEMP 97.1
[2023-05-30] MEDS ORDERED: SODIUM CHLORIDE 0.9% 500 ML IV ONE (16:00)
[2023-05-30] MEDS: ENOXAPARIN 30MG/0.3ML SYR SUBCUT SCH (17:00)
[2023-05-30] MEDS: ACETAMINOPHEN 325MG TABLET PO PRN ×2 (17:24→21:09)
[2023-05-30 20:00] VITALS: BP_SYST 151; BP_SYST 152; BP_SYST 159; BP_DIAS 91; BP_DIAS 94; PULSE 64; RESP 19; TEMP 96.1
[2023-05-31] VITALS (15 sets, daily range): BP systolic 135–166; BP diastolic 76–107; PULSE 62–82; RESP 16–20; TEMP 96.1–97.9
[2023-05-31] MEDS: SILVER SULFADIAZINE 1% CREAM 50GM TOP SCH ×2 (09:00→20:22)
[2023-05-31] MEDS: METOPROLOL SUCCINATE 50MG ER TABLET PO SCH (10:24)
[2023-05-31] MEDS: LISINOPRIL 20MG TABLET PO SCH (10:24)
[2023-05-31] MEDS: ASPIRIN 81MG EC TABLET PO SCH (10:24)
[2023-05-31] MEDS: ACETAMINOPHEN 325MG TABLET PO PRN ×2 (10:38→21:37)
[2023-05-31 14:44] LABS: CALCIUM 7.7 mg/dL (8.7-10.4); CARBON DIOXIDE 13 mEq/L (21-32); CHLORIDE 98 mEq/L (98-107); GLUCOSE 175 mg/dL (70-105); POTASSIUM 5.9 mEq/L (3.5-5.1); SODIUM 131 mEq/L (136-145); UREA NITROGEN BLOOD 81 mg/dL (9-23)
[2023-05-31 15:27] LABS: THYROID STIMULATING HORMONE > 100.00 uIU/mL (0.55-4.78)
[2023-05-31] MEDS: ENOXAPARIN 30MG/0.3ML SYR SUBCUT SCH (18:32)
[2023-05-31] MEDS: ZOLPIDEM TARTRATE 5MG TABLET PO PRN (21:23)
[2023-06-01] VITALS (7 sets, daily range): BP systolic 152–175; BP diastolic 97–111; PULSE 58–70; RESP 16–22; TEMP 96.8–97.7; O2SAT 100
[2023-06-01 06:19] LABS: BASOPHILS % 0.9 % (0.0-2.0); EOSINOPHILS % 2.7 % (0.0-5.0); HEMATOCRIT. 33.2 % (36.0-48.0); HEMOGLOBIN. 10.9 g/dL (12.0-16.0); MEAN CORPUSCULAR HEMOGLOBIN 30.6 pg (28.0-32.0); MEAN CORPUSCULAR HGB CONC 32.9 g/dL (31.0-37.0); MEAN CORPUSCULAR VOLUME 93.1 fL (81.0-99.0); MEAN PLATELET VOLUME 8.8 fl (7.4-10.4); MONOCYTES % 10.9 % (2.0-8.0); NEUTROPHILS % 65.5 % (40.0-76.0); PLATELET 155 x1000/uL (130-400); RED BLOOD CELL COUNT 3.57 mill/uL (4.2-5.4); WHITE BLOOD COUNT 7.2 x1000/uL (4.5-11.0)
[2023-06-01 06:28] LABS: CALCIUM 7.9 mg/dL (8.7-10.4); POTASSIUM 5.3 mEq/L (3.5-5.1)
[2023-06-01 06:30] LABS: CREATININE 5.6 mg/dL (0.6-1.0)
[2023-06-01] MEDS: SILVER SULFADIAZINE 1% CREAM 50GM TOP SCH ×2 (09:00→21:03)
[2023-06-01] MEDS: LISINOPRIL 20MG TABLET PO SCH (09:33)
[2023-06-01] MEDS: ASPIRIN 81MG EC TABLET PO SCH (09:33)
[2023-06-01] MEDS: METOPROLOL SUCCINATE 50MG ER TABLET PO SCH (09:33)
[2023-06-01] MEDS: HYDRALAZINE HCL 50MG TABLET PO SCH ×2 (14:00→21:03)
[2023-06-01] MEDS: ENOXAPARIN 30MG/0.3ML SYR SUBCUT SCH (17:00)
[2023-06-01] MEDS ORDERED: CLONIDINE 0.1MG TABLET PO PRN (17:30)
[2023-06-01] MEDS: ACETAMINOPHEN 325MG TABLET PO PRN (21:02)
[2023-06-01] MEDS: ZOLPIDEM TARTRATE 5MG TABLET PO PRN (21:27)
[2023-06-02] VITALS (10 sets, daily range): BP systolic 122–165; BP diastolic 78–90; PULSE 55–67; RESP 18–20; TEMP 97.5–98.2; O2SAT 98
[2023-06-02] MEDS: HYDRALAZINE HCL 50MG TABLET PO SCH (05:03)
[2023-06-02] MEDS: ACETAMINOPHEN 325MG TABLET PO PRN (08:32)
[2023-06-02] MEDS: METOPROLOL SUCCINATE 50MG ER TABLET PO SCH (08:42)
[2023-06-02] MEDS: LISINOPRIL 20MG TABLET PO SCH (08:43)
[2023-06-02] MEDS: ASPIRIN 81MG EC TABLET PO SCH (08:43)
[2023-06-02] MEDS: SILVER SULFADIAZINE 1% CREAM 50GM TOP SCH (09:00)
== END 2023-06-02 13:15 | DRG 871 ==
LOC: ER 15:48 → EDBEDREQ 21:11 → EDBEDREQSVC 05-27 13:41 → 6WST 05-27 15:48 → 6EST 05-27 18:00 → 8WST 05-30 16:44
PROVIDERS: ADMIT Internal Medicine Nephrology; ATTEND Internal Medicine Nephrology
PROC: 5A1D70Z Performance of Urinary Filtration, Intermittent, Less than 6 Hours Per Day (ICD-10-PCS; principal; 2023-05-27)
PROC: 5A1D70Z Performance of Urinary Filtration, Intermittent, Less than 6 Hours Per Day (ICD-10-PCS; 2023-05-28)
PROC: 5A1D70Z Performance of Urinary Filtration, Intermittent, Less than 6 Hours Per Day (ICD-10-PCS; 2023-05-31)
PROC: 5A1D70Z Performance of Urinary Filtration, Intermittent, Less than 6 Hours Per Day (ICD-10-PCS; 2023-06-02)
DX: A41.9 Sepsis, unspecified organism (principal); I50.23 Acute on chronic systolic (congestive) heart failure; N18.6 End stage renal disease; L03.113 Cellulitis of right upper limb; L03.116 Cellulitis of left lower limb; E87.1 Hypo-osmolality and hyponatremia; I13.2 Hypertensive heart and chronic kidney disease with heart failure and with stage 5 chronic kidney disease, or end stage renal disease; L03.115 Cellulitis of right lower limb; E87.5 Hyperkalemia; E87.70 Fluid overload, unspecified; Z99.2 Dependence on renal dialysis; R42 Dizziness and giddiness; D63.8 Anemia in other chronic diseases classified elsewhere; E11.22 Type 2 diabetes mellitus with diabetic chronic kidney disease; E11.40 Type 2 diabetes mellitus with diabetic neuropathy, unspecified; G90.8 Other disorders of autonomic nervous system; E83.42 Hypomagnesemia; E83.51 Hypocalcemia; E03.9 Hypothyroidism, unspecified
CPT/HCPCS: 36415; 73590; 73600; 80048; 80053; 80202; 82962; 83735; 84100; 84145; 84443; 85025; 86705; 86709; 87340; 90935; 93005; 93306; 94640; 99285; J1650; J1940; J2270; J3370; J3411; J3490; J7030

== ENCOUNTER 2023-07-14 21:46 | Inpatient (IN) | payer MEDICARE, MEDICAID ==
[~2023-07-14] VITALS: Ht 165.1 cm; Wt 95.7 kg
[~2023-07-14 21:46] MED LIST changes: +LEVO150T8 PO
[2023-07-14 23:00] VITALS: BP 102/69; PULSE 60; RESP 18; TEMP 97.9
[2023-07-14] MEDS ORDERED: DOCUSATE SODIUM 100MG CAPSULE PO PRN (23:00)
[2023-07-14] MEDS ORDERED: MAGNESIUM/ALUMINUM HYDROXIDE/SIMETHICONE 30ML UDC PO PRN (23:00)
[2023-07-14] MEDS ORDERED: HYDRALAZINE 20MG/ML VIAL IV PRN (23:00)
[2023-07-14] MEDS ORDERED: NALOXONE HCL 0.4MG/ML 1ML VIAL IV PRN (23:00)
[2023-07-14] MEDS ORDERED: IPRATROPIUM/ALBUTEROL 0.5-3(2.5)MG/3ML NEB HHN PRN (23:00)
[2023-07-14] MEDS ORDERED: DEXTROSE 50% WATER 50ML SYRINGE IV PRN (23:00)
[2023-07-14] MEDS ORDERED: ACETAMINOPHEN 325MG TABLET PO PRN (23:00)
[2023-07-14] MEDS ORDERED: HYDRALAZINE 10 MG in SODIUM CHLORIDE 0.9% 49.5 ML IV PRN (23:30)
[2023-07-15] MEDS ORDERED: NON FORMULARY PATIENT HOME MED XX SCH
[2023-07-15] MEDS: MELATONIN 3MG TABLET PO NR (00:11)
[2023-07-15] MEDS: ACETAMINOPHEN 325MG TABLET PO PRN (00:12)
[2023-07-15 06:00] VITALS: BP 106/54; PULSE 57; RESP 18; TEMP 98.1
[2023-07-15] MEDS: HYDRALAZINE HCL 50MG TABLET PO SCH (06:00)
[2023-07-15] MEDS: BLOOD SUGAR DIAGNOSTIC STRIP TEST SCH (06:32)
[2023-07-15] MEDS: INSULIN LISPRO 100 UNITS/ML SUBCUT SCH (06:33)
[2023-07-15] MEDS ORDERED: ATOR40TA70 MT (06:42)
[2023-07-15] MEDS ORDERED: METO-385 MT (06:42)
[2023-07-15] MEDS ORDERED: GABA-529 PO (06:42)
[2023-07-15] MEDS ORDERED: INSU100I28 SQ (06:43)
[2023-07-15] MEDS ORDERED: INSLIS SUBCUT (06:43)
[2023-07-15 07:46] LABS: HEMATOCRIT. 33.7 % (36.0-48.0); HEMOGLOBIN. 11.2 g/dL (12.0-16.0); LYMPHOCYTES % 26.7 % (20.0-50.0); MEAN CORPUSCULAR HEMOGLOBIN 30.9 pg (28.0-32.0); MEAN CORPUSCULAR HGB CONC 33.2 g/dL (31.0-37.0); MEAN CORPUSCULAR VOLUME 92.9 fL (81.0-99.0); MEAN PLATELET VOLUME 8.9 fl (7.4-10.4); MONOCYTES % 11.1 % (2.0-8.0); NEUTROPHILS % 55.2 % (40.0-76.0); PLATELET 131 x1000/uL (130-400); RED BLOOD CELL COUNT 3.63 mill/uL (4.2-5.4); RED CELL DISTRIBUTION WIDTH 19.1 % (11.6-14.6)
[2023-07-15 08:00] VITALS: BP 108/55; PULSE 56; RESP 18; TEMP 97.6
[2023-07-15 08:19] LABS: ALANINE AMINOTRANSFERASE 16 IU/L (10-49); ALBUMIN 3.9 g/dL (3.2-4.8); ASPARTATE AMINOTRANSFERASE 27 IU/L (<34); BILIRUBIN TOTAL 0.4 mg/dL (0.1-1.0); CARBON DIOXIDE 24 mEq/L (21-32); CHLORIDE 101 mEq/L (98-107); GLUCOSE 99 mg/dL (70-105); POTASSIUM 5.5 mEq/L (3.5-5.1); PREALBUMIN 21.5 mg/dl (10.0-40.0); SODIUM 134 mEq/L (136-145); UREA NITROGEN BLOOD 43 mg/dL (9-23)
[2023-07-15 08:30] LABS: CREATININE 5.6 mg/dL (0.6-1.0)
[2023-07-15] MEDS: AMLODIPINE 10MG TABLET PO SCH (09:00)
[2023-07-15] MEDS: LISINOPRIL 20MG TABLET PO SCH (09:00)
[2023-07-15] MEDS: METOPROLOL TARTRATE 50MG TABLET PO SCH (09:00)
[2023-07-15] MEDS ORDERED: INSULIN LISPRO 100 UNITS/ML SUBCUT SCH (09:00)
[2023-07-15] MEDS: PANTOPRAZOLE SODIUM 40 MG/VIAL IV SCH (09:03)
[2023-07-15] MEDS: LEVOTHYROXINE SODIUM 100 MCG/ VIAL IV SCH (09:21)
[2023-07-15] MEDS: ACETAMINOPHEN WITH CODEINE 300/30MG TABLET PO PRN (11:09)
[2023-07-15 20:00] VITALS: BP 120/64; PULSE 62; RESP 18; TEMP 96.6
[2023-07-16] VITALS (10 sets, daily range): BP systolic 93–129; BP diastolic 48–71; PULSE 51–62; RESP 16–62; TEMP 96.9–98.7
[2023-07-16] MEDS: LEVOTHYROXINE SODIUM 150MCG TABLET PO SCH (06:24)
[2023-07-16 06:34] LABS: BASOPHILS % 0.7 % (0.0-2.0); EOSINOPHILS % 6.7 % (0.0-5.0); HEMATOCRIT. 33.1 % (36.0-48.0); HEMOGLOBIN. 10.9 g/dL (12.0-16.0); LYMPHOCYTES % 23.6 % (20.0-50.0); MEAN CORPUSCULAR HEMOGLOBIN 31.1 pg (28.0-32.0); MEAN CORPUSCULAR HGB CONC 32.9 g/dL (31.0-37.0); MEAN CORPUSCULAR VOLUME 94.5 fL (81.0-99.0); MONOCYTES % 10.6 % (2.0-8.0); NEUTROPHILS % 58.4 % (40.0-76.0); PLATELET 128 x1000/uL (130-400); RED CELL DISTRIBUTION WIDTH 18.8 % (11.6-14.6); WHITE BLOOD COUNT 5.1 x1000/uL (4.5-11.0)
[2023-07-16 07:04] LABS: AMMONIA 36 uMol/L (<32)
[2023-07-16 07:47] LABS: FERRITIN 297 ng/mL (10-291); FOLIC ACID (FOLATE) SERUM > 20.00 ng/mL (>5.38)
[2023-07-16 08:58] LABS: VITAMIN B12 SERUM > 20000 pg/mL (211-911)
[2023-07-16] MEDS: LACTULOSE 20G/30ML UDC PO NR (09:21)
[2023-07-16] MEDS: LACTULOSE 20G/30ML UDC PO SCH (14:44)
[2023-07-16 14:57] LABS: SODIUM 134 mEq/L (136-145)
[2023-07-16 14:58] LABS: CARBON DIOXIDE 19 mEq/L (21-32); CHLORIDE 101 mEq/L (98-107); GLUCOSE 92 mg/dL (70-105); UREA NITROGEN BLOOD 53 mg/dL (9-23)
[2023-07-16 14:59] LABS: ALBUMIN 4.2 g/dL (3.2-4.8); BILIRUBIN TOTAL 0.3 mg/dL (0.1-1.0); CALCIUM 7.6 mg/dL (8.7-10.4); PROTEIN TOTAL 8.1 g/dL (6.0-8.3)
[2023-07-16 15:00] LABS: ALANINE AMINOTRANSFERASE 18 IU/L (10-49); ASPARTATE AMINOTRANSFERASE 33 IU/L (<34); CREATINE KINASE 107 IU/L (34-145); IRON 54 ug/dL (50-170); THYROID STIMULATING HORMONE > 150.00 uIU/mL (0.55-4.78); TOTAL IRON BINDING CAPACITY 184 ug/dl (250-425)
[2023-07-16 15:07] LABS: CREATININE 6.3 mg/dL (0.6-1.0); POTASSIUM 6.2 mEq/L (3.5-5.1)
[2023-07-16] MEDS: SODIUM POLYSTYRENE SULFONATE 15 G/60 ML BOT PO NR (17:37)
[2023-07-16] MEDS ORDERED: MUPIROCIN 2% OINT 15GM NS SCH (21:00)
[2023-07-16 22:03] LABS: POTASSIUM 4.7 mEq/L (3.5-5.1)
[2023-07-16] MEDS: MUPIROCIN 2% OINT 22GM NS SCH (22:09)
[2023-07-17 06:17] LABS: EOSINOPHILS % 5.9 % (0.0-5.0); HEMATOCRIT. 30.8 % (36.0-48.0); HEMOGLOBIN. 10.2 g/dL (12.0-16.0); LYMPHOCYTES % 20.1 % (20.0-50.0); MEAN CORPUSCULAR HEMOGLOBIN 30.7 pg (28.0-32.0); MEAN CORPUSCULAR VOLUME 92.9 fL (81.0-99.0); MEAN PLATELET VOLUME 8.7 fl (7.4-10.4); MONOCYTES % 10.2 % (2.0-8.0); NEUTROPHILS % 62.8 % (40.0-76.0); PLATELET 118 x1000/uL (130-400); RED BLOOD CELL COUNT 3.32 mill/uL (4.2-5.4); WHITE BLOOD COUNT 4.5 x1000/uL (4.5-11.0)
[2023-07-17 06:44] LABS: AMMONIA 37 uMol/L (<32)
[2023-07-17 06:51] LABS: CALCIUM 7.8 mg/dL (8.7-10.4); CARBON DIOXIDE 23 mEq/L (21-32); CHLORIDE 100 mEq/L (98-107); GLUCOSE 121 mg/dL (70-105); PHOSPHORUS 3.7 mg/dL (2.5-4.9); POTASSIUM 4.7 mEq/L (3.5-5.1); SODIUM 135 mEq/L (136-145); UREA NITROGEN BLOOD 43 mg/dL (9-23)
[2023-07-17 06:56] LABS: CREATININE 5.4 mg/dL (0.6-1.0)
[2023-07-17 08:00] VITALS: BP 103/49; PULSE 63; RESP 19; TEMP 97
[2023-07-17] MEDS: FAMOTIDINE 20MG/2ML VIAL IV SCH (09:00)
[2023-07-17] MEDS: ONDANSETRON HCL 4MG/2ML INJ IV PRN (12:50)
[2023-07-17 20:00] VITALS: BP 104/55; PULSE 59; RESP 17; TEMP 97
[2023-07-18 06:44] LABS: AMMONIA 20 uMol/L (<32)
[2023-07-18 08:00] VITALS: BP 131/66; PULSE 65; RESP 18; TEMP 98
[2023-07-18] MEDS: TOBRAMYCIN/DEXAMETHASONE OPTH DROPS 2.5ML RIGHTEYE SCH (17:30)
[2023-07-18] MEDS: CALCIUM ACETATE 667MG CAPSULE PO SCH (17:40)
[2023-07-18 20:00] VITALS: BP 103/55; PULSE 58; RESP 19; TEMP 96.4
[2023-07-19] VITALS (11 sets, daily range): BP systolic 98–126; BP diastolic 51–64; PULSE 52–63; RESP 16–19; TEMP 96.4–97.6
[2023-07-19 07:40] LABS: CALCIUM 7.6 mg/dL (8.7-10.4); CARBON DIOXIDE 22 mEq/L (21-32); CHLORIDE 98 mEq/L (98-107); GLUCOSE 114 mg/dL (70-105); PHOSPHORUS 6.2 mg/dL (2.5-4.9); POTASSIUM 5.5 mEq/L (3.5-5.1); SODIUM 132 mEq/L (136-145); T4 FREE 0.88 ng/dL (0.89-1.76); UREA NITROGEN BLOOD 56 mg/dL (9-23)
[2023-07-19 08:08] LABS: CREATININE 6.6 mg/dL (0.6-1.0)
[2023-07-19] MEDS: LACTULOSE 20G/30ML UDC PO SCH (09:00)
[2023-07-19] MEDS: HYDROCODONE/ACETAMINOPHEN 5/325MG TABLET PO PRN (14:01)
[2023-07-19 22:26] LABS: HEPATITIS A AB IGM NEGATIVE (Negative); HEPATITIS B CORE AB IGM NEGATIVE (Negative); HEPATITIS B SURFACE ANTIGEN NEGATIVE (Negative); HEPATITIS C AB NON REACTIVE (Neg) (Negative)
[2023-07-20] VITALS (11 sets, daily range): BP systolic 106–143; BP diastolic 58–76; PULSE 57–72; RESP 12–20; TEMP 96.9–98.2
[2023-07-20] MEDS: LEVOTHYROXINE SODIUM 200MCG TABLET PO SCH (06:43)
[2023-07-20 16:49] LABS: EOSINOPHILS % 2.3 % (0.0-5.0); HEMATOCRIT. 30.6 % (36.0-48.0); LYMPHOCYTES % 18.3 % (20.0-50.0); MEAN CORPUSCULAR HEMOGLOBIN 30.7 pg (28.0-32.0); MEAN CORPUSCULAR HGB CONC 32.6 g/dL (31.0-37.0); MEAN CORPUSCULAR VOLUME 94.2 fL (81.0-99.0); MEAN PLATELET VOLUME 9.1 fl (7.4-10.4); MONOCYTES % 14.5 % (2.0-8.0); NEUTROPHILS % 63.9 % (40.0-76.0); PLATELET 131 x1000/uL (130-400); RED BLOOD CELL COUNT 3.25 mill/uL (4.2-5.4); RED CELL DISTRIBUTION WIDTH 18.9 % (11.6-14.6); WHITE BLOOD COUNT 4.4 x1000/uL (4.5-11.0)
[2023-07-20 16:53] LABS: ALANINE AMINOTRANSFERASE 23 IU/L (10-49); ALBUMIN 4.4 g/dL (3.2-4.8); ASPARTATE AMINOTRANSFERASE 31 IU/L (<34); BILIRUBIN TOTAL 0.3 mg/dL (0.1-1.0); CALCIUM 7.8 mg/dL (8.7-10.4); CARBON DIOXIDE 23 mEq/L (21-32); CHLORIDE 100 mEq/L (98-107); CREATININE 5.8 mg/dL (0.6-1.0); GLUCOSE 151 mg/dL (70-105); POTASSIUM 5.1 mEq/L (3.5-5.1); PROTEIN TOTAL 8.2 g/dL (6.0-8.3); SODIUM 134 mEq/L (136-145); UREA NITROGEN BLOOD 58 mg/dL (9-23)
[2023-07-20] MEDS ORDERED: GADOTERATE MEGLUMINE 5 MMOL/10 ML VIAL IV ONE (19:20)
[2023-07-21 06:59] LABS: EOSINOPHILS % 2.9 % (0.0-5.0); HEMATOCRIT. 30.4 % (36.0-48.0); HEMOGLOBIN. 10.1 g/dL (12.0-16.0); LYMPHOCYTES % 15.4 % (20.0-50.0); MEAN CORPUSCULAR HEMOGLOBIN 30.8 pg (28.0-32.0); MEAN CORPUSCULAR VOLUME 93.2 fL (81.0-99.0); MEAN PLATELET VOLUME 9.2 fl (7.4-10.4); MONOCYTES % 13.3 % (2.0-8.0); NEUTROPHILS % 67.4 % (40.0-76.0); PLATELET 134 x1000/uL (130-400); RED BLOOD CELL COUNT 3.27 mill/uL (4.2-5.4); RED CELL DISTRIBUTION WIDTH 18.5 % (11.6-14.6); WHITE BLOOD COUNT 5.1 x1000/uL (4.5-11.0)
[2023-07-21 07:19] LABS: CALCIUM 8.1 mg/dL (8.7-10.4); POTASSIUM 5.2 mEq/L (3.5-5.1)
[2023-07-21 08:00] VITALS: BP 145/76; PULSE 75; RESP 20; TEMP 98.4
[2023-07-21 08:08] LABS: CREATININE 5.4 mg/dL (0.6-1.0)
[2023-07-21 09:02] VITALS: RESP 16
[2023-07-21 09:35] VITALS: BP 145/76; PULSE 75; TEMP 98.4; O2SAT 96
[2023-07-23] MEDS ORDERED: FAMOTIDINE 20MG TABLET PO SCH (09:00)
== END 2023-07-21 09:37 | disposition short-term general hospital (02) | DRG 70 ==
PROVIDERS: ADMIT Physical Medicine & Rehabilitation Spinal Cord Injury Medicine; ATTEND Internal Medicine
DX: G93.41 Metabolic encephalopathy (principal); N18.6 End stage renal disease; I12.0 Hypertensive chronic kidney disease with stage 5 chronic kidney disease or end stage renal disease; E72.20 Disorder of urea cycle metabolism, unspecified; E87.1 Hypo-osmolality and hyponatremia; D63.1 Anemia in chronic kidney disease; E11.22 Type 2 diabetes mellitus with diabetic chronic kidney disease; E11.40 Type 2 diabetes mellitus with diabetic neuropathy, unspecified; E66.9 Obesity, unspecified; I83.029 Varicose veins of left lower extremity with ulcer of unspecified site; E11.649 Type 2 diabetes mellitus with hypoglycemia without coma; M75.00 Adhesive capsulitis of unspecified shoulder; K59.00 Constipation, unspecified; E03.9 Hypothyroidism, unspecified; E78.00 Pure hypercholesterolemia, unspecified; E87.70 Fluid overload, unspecified; G47.00 Insomnia, unspecified; M17.0 Bilateral primary osteoarthritis of knee; R26.89 Other abnormalities of gait and mobility; I95.9 Hypotension, unspecified; M25.551 Pain in right hip; M25.552 Pain in left hip; M54.9 Dorsalgia, unspecified; R10.9 Unspecified abdominal pain; R42 Dizziness and giddiness; R60.0 Localized edema; G90.8 Other disorders of autonomic nervous system; Z79.4 Long term (current) use of insulin; Z87.891 Personal history of nicotine dependence; Z91.81 History of falling; Z99.2 Dependence on renal dialysis; Z68.35 Body mass index [BMI] 35.0-35.9, adult
CPT/HCPCS: 36415; 70543; 70553; 80048; 80053; 82140; 82306; 82550; 82607; 82728; 82746; 82962; 83036; 83540; 83550; 83735; 84100; 84132; 84134; 84439; 84443; 85025; 85651; 86705; 86709; 87340; 90935; 92523; 92610; 93970; 93971; 97110; 97116; 97162; 97166; 97530; 97535; 97542; A9577; C9113; J1815; J2405; J3490

== ENCOUNTER 2023-07-21 09:38 | Inpatient (IN) | payer MEDICARE, MEDICAID ==
[~2023-07-21] VITALS: Ht 165.1 cm; Wt 95.7 kg
[~2023-07-21 09:38] MED LIST changes: +ATOR40TA70 MT; -B CM1TAB PO; +GABA-529 PO; +INSLIS SUBCUT; +INSU100I28 SQ; -LEVO250T74 MT; -LISI20TA31 PO; +METO-385 MT; -MULT-1146 MT; -ZOLP10TA2 PO
[2023-07-21 11:34] VITALS: BP 141/84; PULSE 56; RESP 20; TEMP 97.7
[2023-07-21 12:00] VITALS: BP 141/94; PULSE 56; RESP 20; TEMP 97.7
[2023-07-21] MEDS ORDERED: ACETAMINOPHEN 325MG TABLET PO PRN (13:15)
[2023-07-21] MEDS ORDERED: GUAIFENESIN 200MG/10ML SUGAR FREE UDC PO PRN (13:15)
[2023-07-21] MEDS ORDERED: MAGNESIUM/ALUMINUM HYDROXIDE/SIMETHICONE 30ML UDC PO PRN ×2 (13:15→17:00)
[2023-07-21] MEDS ORDERED: DOCUSATE SODIUM 100MG CAPSULE PO PRN (13:15)
[2023-07-21] MEDS ORDERED: IPRATROPIUM/ALBUTEROL 0.5-3(2.5)MG/3ML NEB HHN PRN (13:15)
[2023-07-21] MEDS: ACETAMINOPHEN 325MG TABLET PO PRN (15:45)
[2023-07-21 16:00] VITALS: BP 136/75; PULSE 54; RESP 20; TEMP 97.2
[2023-07-21] MEDS ORDERED: LACTULOSE 20G/30ML UDC PO PRN (17:00)
[2023-07-21] MEDS ORDERED: METOPROLOL SUCCINATE 50MG ER TABLET PO SCH (17:00)
[2023-07-21] MEDS ORDERED: DEXTROSE 50% WATER 50ML SYRINGE IV PRN (17:15)
[2023-07-21] MEDS ORDERED: LEVOTHYROXINE SODIUM 150MCG TABLET PO SCH (17:15)
[2023-07-21] MEDS: BLOOD SUGAR DIAGNOSTIC STRIP TEST SCH (17:34)
[2023-07-21] MEDS: INSULIN LISPRO 100 UNITS/ML SUBCUT SCH (17:39)
[2023-07-21] MEDS: GABAPENTIN 100MG CAPSULE PO SCH (17:39)
[2023-07-21 18:47] LABS: D-DIMER 3.47 mg/L FEU (<0.50); INR 1.1; PARTIAL THROMBOPLASTIN TIME 29.6 sec (23.4-31.0); PROTHROMBIN TIME 12.2 sec (9.6-11.0)
[2023-07-21 18:50] LABS: CALCIUM 7.5 mg/dL (8.7-10.4); CARBON DIOXIDE 21 mEq/L (21-32); CHLORIDE 98 mEq/L (98-107); GLUCOSE 203 mg/dL (70-105); PHOSPHORUS 5.7 mg/dL (2.5-4.9); POTASSIUM 5.2 mEq/L (3.5-5.1); SODIUM 132 mEq/L (136-145); UREA NITROGEN BLOOD 53 mg/dL (9-23)
[2023-07-21 18:51] LABS: CREATINE KINASE 113 IU/L (34-145); CREATINE KINASE MB FRACTION 7.1 ng/mL (0.5-3.6); TROPONIN I HIGH SENSITIVITY 14 ng/L (3.0-34)
[2023-07-21 19:01] LABS: CREATININE 5.4 mg/dL (0.6-1.0)
[2023-07-21] MEDS: HYDROCODONE/ACETAMINOPHEN 5/325MG TABLET PO PRN (19:02)
[2023-07-21 20:00] VITALS: BP 100/57; PULSE 54; RESP 19; TEMP 96.1
[2023-07-21] MEDS: CALCIUM ACETATE 667MG CAPSULE PO SCH (20:59)
[2023-07-21] MEDS ORDERED: INSULIN GLARGINE HUM REC ANLOG 10 UNIT SQ SCH (21:00)
[2023-07-21] MEDS ORDERED: [UNRECOGNIZED DRUG - OTHER] SQ SCH (21:00)
[2023-07-21] MEDS: MUPIROCIN 2% OINT 22GM NS SCH (21:00)
[2023-07-21] MEDS: INSULIN GLARGINE 100 UNITS/ML SUBCUT SCH (21:13)
[2023-07-21] MEDS: HYDRALAZINE HCL 50MG TABLET PO SCH (21:14)
[2023-07-22] VITALS (12 sets, daily range): BP systolic 108–152; BP diastolic 56–82; PULSE 53–70; RESP 14–20; TEMP 96.8–97.8
[2023-07-22 03:12] LABS: CREATINE KINASE MB FRACTION 6.4 ng/mL (0.5-3.6)
[2023-07-22 06:28] LABS: HEMATOCRIT. 31.4 % (36.0-48.0); HEMOGLOBIN. 10.4 g/dL (12.0-16.0); MEAN CORPUSCULAR HEMOGLOBIN 30.7 pg (28.0-32.0); MEAN CORPUSCULAR VOLUME 92.9 fL (81.0-99.0); MEAN PLATELET VOLUME 9.5 fl (7.4-10.4); PLATELET 143 x1000/uL (130-400); RED BLOOD CELL COUNT 3.38 mill/uL (4.2-5.4); RED CELL DISTRIBUTION WIDTH 18.4 % (11.6-14.6); WHITE BLOOD COUNT 4.6 x1000/uL (4.5-11.0)
[2023-07-22 06:57] LABS: ALANINE AMINOTRANSFERASE 20 IU/L (10-49); ALBUMIN 4.2 g/dL (3.2-4.8); ASPARTATE AMINOTRANSFERASE 25 IU/L (<34); BILIRUBIN TOTAL 0.4 mg/dL (0.1-1.0); CARBON DIOXIDE 24 mEq/L (21-32); CHLORIDE 98 mEq/L (98-107); GLUCOSE 65 mg/dL (70-105); POTASSIUM 5.6 mEq/L (3.5-5.1); SODIUM 133 mEq/L (136-145); UREA NITROGEN BLOOD 61 mg/dL (9-23)
[2023-07-22 06:59] LABS: DIFFERENTIAL COMMENT 1
[2023-07-22] MEDS ORDERED: LEVOTHYROXINE SODIUM 200MCG TABLET PO SCH (07:40)
[2023-07-22] MEDS: PANTOPRAZOLE SODIUM 40 MG/VIAL IV SCH (08:59)
[2023-07-22] MEDS: LEVOTHYROXINE SODIUM 200MCG TABLET PO SCH (08:59)
[2023-07-22] MEDS ORDERED: ATORVASTATIN CALCIUM 40MG TABLET PO SCH (09:00)
[2023-07-22] MEDS: AMLODIPINE 10MG TABLET PO SCH (09:00)
[2023-07-22] MEDS: LISINOPRIL 20MG TABLET PO SCH (09:00)
[2023-07-22] MEDS: METOPROLOL SUCCINATE 50MG ER TABLET PO SCH (09:00)
[2023-07-22] MEDS ORDERED: FAMOTIDINE 20MG/2ML VIAL IV SCH ×2 (09:00)
[2023-07-22] MEDS: CALCIUM ACETATE 667MG CAPSULE PO SCH (17:23)
[2023-07-22 19:35] LABS: HEPATITIS A AB IGM NEGATIVE (Negative); HEPATITIS B CORE AB IGM NEGATIVE (Negative); HEPATITIS B SURFACE ANTIGEN NEGATIVE (Negative); HEPATITIS C AB NON REACTIVE (Neg) (Negative)
[2023-07-22] MEDS: ATORVASTATIN CALCIUM 40MG TABLET PO SCH (21:55)
[2023-07-22] MEDS: INSULIN GLARGINE 100 UNITS/ML SUBCUT SCH (21:56)
[2023-07-23] VITALS: BP 132/62; PULSE 66; RESP 19; TEMP 97.2
[2023-07-23 08:07] VITALS: BP 104/52; PULSE 62; RESP 18; TEMP 98.2
[2023-07-23] MEDS: PANTOPRAZOLE 40MG DR TABLET PO SCH (09:50)
[2023-07-23 10:11] LABS: ANISOCYTOSIS 2+; PLATELET ESTIMATE NORMAL
[2023-07-23 12:17] VITALS: BP 110/57; PULSE 63; RESP 18; TEMP 97.3
[2023-07-23 15:41] VITALS: BP 116/65; PULSE 63; RESP 18; TEMP 98
[2023-07-24 08:00] VITALS: BP 133/71; PULSE 57; RESP 18; TEMP 98.6
[2023-07-24] MEDS: ONDANSETRON HCL 4MG/2ML INJ IV PRN (11:48)
[2023-07-24 12:00] VITALS: BP 143/68; PULSE 66; RESP 18; TEMP 97.9
[2023-07-24 16:00] VITALS: BP 133/71; PULSE 57; RESP 18; TEMP 98.6
[2023-07-24 20:00] VITALS: BP 145/79; PULSE 64; RESP 18; TEMP 97.5
[2023-07-25] VITALS (7 sets, daily range): BP systolic 100–158; BP diastolic 44–74; PULSE 56–69; RESP 18–19; TEMP 97–98
[2023-07-25 06:06] LABS: BASOPHILS % 0.9 % (0.0-2.0); HEMATOCRIT. 28.9 % (36.0-48.0); HEMOGLOBIN. 9.8 g/dL (12.0-16.0); LYMPHOCYTES % 15.3 % (20.0-50.0); MEAN CORPUSCULAR HGB CONC 33.8 g/dL (31.0-37.0); MEAN CORPUSCULAR VOLUME 91.8 fL (81.0-99.0); MEAN PLATELET VOLUME 9.2 fl (7.4-10.4); MONOCYTES % 10.4 % (2.0-8.0); NEUTROPHILS % 69.4 % (40.0-76.0); PLATELET 147 x1000/uL (130-400); RED BLOOD CELL COUNT 3.15 mill/uL (4.2-5.4); RED CELL DISTRIBUTION WIDTH 17.7 % (11.6-14.6); WHITE BLOOD COUNT 5.1 x1000/uL (4.5-11.0)
[2023-07-25 06:24] LABS: CALCIUM 8.2 mg/dL (8.7-10.4); CARBON DIOXIDE 23 mEq/L (21-32); CHLORIDE 98 mEq/L (98-107); GLUCOSE 119 mg/dL (70-105); PHOSPHORUS 5.7 mg/dL (2.5-4.9); POTASSIUM 5.9 mEq/L (3.5-5.1); SODIUM 134 mEq/L (136-145); UREA NITROGEN BLOOD 73 mg/dL (9-23)
[2023-07-25 06:45] LABS: CREATININE 6.9 mg/dL (0.6-1.0)
[2023-07-25] MEDS: FAMOTIDINE 20MG TABLET PO SCH (09:00)
[2023-07-25] MEDS ORDERED: NALOXONE HCL 0.4MG/ML VIAL IV PRN (21:15)
[2023-07-26] VITALS (17 sets, daily range): BP systolic 120–140; BP diastolic 59–73; PULSE 65–74; RESP 9–20; TEMP 97.5–97.8
[2023-07-26] MEDS ORDERED: IOHEXOL-300 100 ML BOTTLE ONE ×2 (11:35→12:47)
[2023-07-26] MEDS ORDERED: LIDOCAINE HCL 1% 10 MG/ML 10ML VIAL ONE (12:59)
[2023-07-26] MEDS: MECLIZINE 25MG TABLET PO PRN (16:19)
[2023-07-26] MEDS: INSULIN GLARGINE 100 UNITS/ML SUBCUT SCH (21:49)
[2023-07-27] VITALS (7 sets, daily range): BP systolic 104–139; BP diastolic 57–72; PULSE 62–80; RESP 18–20; TEMP 97.5–98; O2SAT 100
[2023-07-27 07:19] LABS: HEMATOCRIT 29.3 % (36.0-48.0); HEMOGLOBIN 9.7 g/dL (12.0-16.0); MEAN CORPUSCULAR HEMOGLOBIN 30.4 pg (28.0-32.0); MEAN CORPUSCULAR HGB CONC 33.1 g/dL (31.0-37.0); PLATELET 134 x1000/uL (130-400); RED BLOOD CELL COUNT 3.19 mill/uL (4.2-5.4); RED CELL DISTRIBUTION WIDTH 17.9 % (11.6-14.6); WHITE BLOOD COUNT 5.6 x1000/uL (4.5-11.0)
[2023-07-27] MEDS: INSULIN LISPRO 100 UNITS/ML SUBCUT SCH (07:40)
[2023-07-27 07:46] LABS: CALCIUM 7.8 mg/dL (8.7-10.4)
[2023-07-27 07:48] LABS: CREATININE 6.5 mg/dL (0.6-1.0); POTASSIUM 6.4 mEq/L (3.5-5.1)
== END 2023-07-27 13:45 | disposition home or self-care (01) | DRG 252 ==
LOC: 4WST 09:38 → 7WST 16:21
PROVIDERS: ADMIT Internal Medicine; ATTEND Internal Medicine
PROC: 5A1D70Z Performance of Urinary Filtration, Intermittent, Less than 6 Hours Per Day (ICD-10-PCS; principal; 2023-07-22)
PROC: 5A1D70Z Performance of Urinary Filtration, Intermittent, Less than 6 Hours Per Day (ICD-10-PCS; 2023-07-25)
PROC: 05753ZZ Dilation of Right Subclavian Vein, Percutaneous Approach (ICD-10-PCS; 2023-07-26)
PROC: 05793ZZ Dilation of Right Brachial Vein, Percutaneous Approach (ICD-10-PCS; 2023-07-26)
PROC: 5A1D70Z Performance of Urinary Filtration, Intermittent, Less than 6 Hours Per Day (ICD-10-PCS; 2023-07-27)
DX: T82.510A Breakdown (mechanical) of surgically created arteriovenous fistula, initial encounter (principal); E03.5 Myxedema coma; G93.41 Metabolic encephalopathy; N18.6 End stage renal disease; E87.1 Hypo-osmolality and hyponatremia; I12.0 Hypertensive chronic kidney disease with stage 5 chronic kidney disease or end stage renal disease; E72.20 Disorder of urea cycle metabolism, unspecified; E11.649 Type 2 diabetes mellitus with hypoglycemia without coma; E11.22 Type 2 diabetes mellitus with diabetic chronic kidney disease; E03.9 Hypothyroidism, unspecified; D64.9 Anemia, unspecified; E78.00 Pure hypercholesterolemia, unspecified; N64.4 Mastodynia; E66.9 Obesity, unspecified; H57.11 Ocular pain, right eye; H43.11 Vitreous hemorrhage, right eye; D63.1 Anemia in chronic kidney disease; E11.40 Type 2 diabetes mellitus with diabetic neuropathy, unspecified; H00.011 Hordeolum externum right upper eyelid; H54.61 Unqualified visual loss, right eye, normal vision left eye; Y71.2 Prosthetic and other implants, materials and accessory cardiovascular devices associated with adverse incidents; I70.8 Atherosclerosis of other arteries; K59.00 Constipation, unspecified; E87.5 Hyperkalemia; H54.7 Unspecified visual loss; Z99.2 Dependence on renal dialysis; Z79.84 Long term (current) use of oral hypoglycemic drugs; Z79.85 Long-term (current) use of injectable non-insulin antidiabetic drugs; Z79.4 Long term (current) use of insulin; Z91.199 Patient's noncompliance with other medical treatment and regimen due to unspecified reason
CPT/HCPCS: 36415; 36598; 36902; 71045; 71270; 75827; 80048; 80053; 82550; 82553; 82962; 83036; 83735; 84100; 84439; 84484; 85025; 85027; 85379; 86705; 86709; 87340; 90935; 93971; 97162; 97166; A6261; C1725; C1766; C1769; C1887; C1893; C9113; J1644; J1815; J2405; J3490; J8597; Q9967

== ENCOUNTER 2023-07-28 09:42 | Emergency (ER) | payer MEDICAID, MEDICARE ==
[~2023-07-28] VITALS: Ht 165.1 cm; Wt 75.0 kg
[~2023-07-28 09:42] MED LIST changes: -ASPI-1497 PO
[2023-07-28 09:44] VITALS: O2SAT 98
[2023-07-28 10:29] VITALS: TEMP 98.3
[2023-07-28 10:37] VITALS: BP 134/66; PULSE 72; RESP 15
== END 2023-07-28 10:29 | disposition home or self-care (01) ==
LOC: ER 09:52
DX: R60.9 Edema, unspecified (principal); I12.0 Hypertensive chronic kidney disease with stage 5 chronic kidney disease or end stage renal disease; E11.22 Type 2 diabetes mellitus with diabetic chronic kidney disease; N18.6 End stage renal disease; E78.00 Pure hypercholesterolemia, unspecified; Z79.82 Long term (current) use of aspirin; Z79.899 Other long term (current) drug therapy; Z98.890 Other specified postprocedural states
CPT/HCPCS: 99283

== ENCOUNTER 2023-07-31 15:40 | Inpatient (IN) | payer MEDICARE, MEDICAID ==
[~2023-07-31] VITALS: Ht 165.1 cm; Wt 89.8 kg
[2023-07-31 17:42] LABS: BASOPHILS % 0.8 % (0.0-2.0); EOSINOPHILS % 2.5 % (0.0-5.0); HEMATOCRIT. 30.2 % (36.0-48.0); LYMPHOCYTES % 18.1 % (20.0-50.0); MEAN CORPUSCULAR HEMOGLOBIN 30.7 pg (28.0-32.0); MEAN CORPUSCULAR HGB CONC 33.1 g/dL (31.0-37.0); MEAN CORPUSCULAR VOLUME 92.9 fL (81.0-99.0); MEAN PLATELET VOLUME 9.6 fl (7.4-10.4); MONOCYTES % 10.4 % (2.0-8.0); NEUTROPHILS % 68.2 % (40.0-76.0); PLATELET 147 x1000/uL (130-400); RED BLOOD CELL COUNT 3.25 mill/uL (4.2-5.4); RED CELL DISTRIBUTION WIDTH 17.4 % (11.6-14.6); WHITE BLOOD COUNT 7.2 x1000/uL (4.5-11.0)
[2023-07-31 17:51] LABS: ALANINE AMINOTRANSFERASE 21 IU/L (10-49); ALBUMIN 4.3 g/dL (3.2-4.8); ASPARTATE AMINOTRANSFERASE 33 IU/L (<34); BILIRUBIN TOTAL 0.3 mg/dL (0.1-1.0); CALCIUM 8.3 mg/dL (8.7-10.4); CARBON DIOXIDE 23 mEq/L (21-32); CHLORIDE 92 mEq/L (98-107); GLUCOSE 149 mg/dL (70-105); PROTEIN TOTAL 8.4 g/dL (6.0-8.3); SODIUM 125 mEq/L (136-145); UREA NITROGEN BLOOD 81 mg/dL (9-23)
[2023-07-31 17:57] LABS: INR 1.1; PARTIAL THROMBOPLASTIN TIME 27.7 sec (23.4-31.0); PROTHROMBIN TIME 11.9 sec (9.6-11.0)
[2023-07-31 18:05] LABS: CREATININE 6.6 mg/dL (0.6-1.0); POTASSIUM 6.4 mEq/L (3.5-5.1)
[2023-07-31] MEDS: SODIUM POLYSTYRENE SULFONATE 15 G/60 ML BOT PO ONE (18:45)
[2023-07-31] MEDS: CALCIUM GLUCONATE 1GM PREMIX 50 ML IV ONE ×2 (18:45→19:08)
[2023-07-31] MEDS: DEXTROSE 50% WATER 50ML SYRINGE IV ONE (18:45)
[2023-07-31] MEDS: INSULIN REGULAR (HUMULIN R) 300UNITS/3ML VIAL IV ONE (18:47)
[2023-07-31] MEDS: ACETAMINOPHEN 325MG TABLET PO NR (19:22)
[2023-07-31] MEDS ORDERED: DEXTROSE 50% WATER 50ML SYRINGE IV PRN (20:30)
[2023-07-31] MEDS ORDERED: MAGNESIUM/ALUMINUM HYDROXIDE/SIMETHICONE 30ML UDC PO PRN (20:30)
[2023-07-31] MEDS ORDERED: ACETAMINOPHEN 325MG TABLET PO PRN (20:30)
[2023-07-31] MEDS ORDERED: INSULIN LISPRO 100 UNITS/ML SUBCUT SCH (21:00)
[2023-07-31 22:00] VITALS: BP 144/93; PULSE 62; RESP 20; TEMP 97.1
[2023-07-31] MEDS: SODIUM CHLORIDE 0.9% INJ 3ML FLUSH IVF SCH (22:00)
[2023-07-31] MEDS: INSULIN GLARGINE 100 UNITS/ML SUBCUT SCH (22:00)
[2023-07-31] MEDS: METOPROLOL TARTRATE 25MG TABLET PO SCH (22:00)
[2023-07-31] MEDS: BLOOD SUGAR DIAGNOSTIC STRIP TEST SCH (22:30)
[2023-07-31] MEDS: ONDANSETRON HCL 4MG/2ML INJ IV PRN (22:30)
[2023-07-31] MEDS: ACETAMINOPHEN 325MG TABLET PO PRN (22:30)
[2023-08-01] VITALS (11 sets, daily range): BP systolic 122–154; BP diastolic 54–87; PULSE 58–78; RESP 17–20; TEMP 97.3–98.1
[2023-08-01] MEDS: INSULIN LISPRO (LOW DOSE) 100 UNITS/ML SUBCUT SCH (06:07)
[2023-08-01 06:46] LABS: BASOPHILS % 0.9 % (0.0-2.0); CALCIUM 8.3 mg/dL (8.7-10.4); EOSINOPHILS % 2.7 % (0.0-5.0); HEMATOCRIT. 27.3 % (36.0-48.0); LYMPHOCYTES % 21.9 % (20.0-50.0); MEAN CORPUSCULAR HEMOGLOBIN 30.2 pg (28.0-32.0); MEAN CORPUSCULAR HGB CONC 32.9 g/dL (31.0-37.0); MEAN CORPUSCULAR VOLUME 91.8 fL (81.0-99.0); MEAN PLATELET VOLUME 9.6 fl (7.4-10.4); MONOCYTES % 12.5 % (2.0-8.0); PLATELET 120 x1000/uL (130-400); POTASSIUM 6.1 mEq/L (3.5-5.1); RED BLOOD CELL COUNT 2.97 mill/uL (4.2-5.4); RED CELL DISTRIBUTION WIDTH 17.3 % (11.6-14.6); T4 FREE 0.75 ng/dL (0.89-1.76); WHITE BLOOD COUNT 5.4 x1000/uL (4.5-11.0)
[2023-08-01] MEDS: LEVOTHYROXINE SODIUM 200MCG TABLET PO SCH (06:50)
[2023-08-01 07:12] LABS: CREATININE 6.8 mg/dL (0.6-1.0)
[2023-08-01] MEDS ORDERED: INSULIN LISPRO 100 UNITS/ML SUBCUT SCH (07:40)
[2023-08-01] MEDS ORDERED: LEVOTHYROXINE SODIUM 150MCG TABLET PO SCH (07:40)
[2023-08-01] MEDS: FUROSEMIDE 40MG TABLET PO SCH (09:05)
[2023-08-01] MEDS: FOLIC ACID/VITAMIN B COMP W-C TABLET PO SCH (09:06)
[2023-08-01] MEDS: CALCIUM ACETATE 667MG CAPSULE PO SCH (09:06)
[2023-08-01] MEDS: HYDROCODONE/ACETAMINOPHEN 5/325MG TABLET PO PRN (13:36)
[2023-08-01] MEDS ORDERED: NALOXONE HCL 0.4MG/ML VIAL IV PRN (15:15)
[2023-08-01] MEDS: MORPHINE SULFATE 2 MG/ML CPJ (NOT FOR IM USE) IV PRN (17:46)
[2023-08-02] VITALS: BP 160/82; PULSE 61; RESP 18; TEMP 97.6
[2023-08-02 04:00] VITALS: BP 141/77; PULSE 55; RESP 19; TEMP 98.3
[2023-08-02 08:00] VITALS: BP 139/92; PULSE 53; RESP 20; TEMP 96.5
[2023-08-02 12:00] VITALS: BP 131/68; PULSE 57; RESP 19; TEMP 97.1
[2023-08-02] MEDS: SODIUM HYPOCHLORITE SOLUTION (0.5%)FULL STRENGTH TOP SCH (15:29)
[2023-08-02 16:00] VITALS: BP 102/72; PULSE 59; RESP 18; TEMP 96.9
[2023-08-02 20:41] VITALS: BP 133/81; PULSE 52; RESP 18; TEMP 97.1
[2023-08-03] VITALS (9 sets, daily range): BP systolic 99–174; BP diastolic 62–91; PULSE 58–75; RESP 16–20; TEMP 97.1–98.6
[2023-08-03] MEDS ORDERED: HYDRALAZINE 20MG/ML VIAL IV PRN (07:45)
[2023-08-03] MEDS: AMLODIPINE 5MG TABLET PO SCH (08:18)
[2023-08-03 10:29] LABS: HEMATOCRIT 25.6 % (36.0-48.0); HEMOGLOBIN 8.4 g/dL (12.0-16.0); MEAN CORPUSCULAR HEMOGLOBIN 30.4 pg (28.0-32.0); MEAN CORPUSCULAR HGB CONC 32.8 g/dL (31.0-37.0); MEAN CORPUSCULAR VOLUME 92.7 fL (81.0-99.0); PLATELET 139 x1000/uL (130-400); RED BLOOD CELL COUNT 2.77 mill/uL (4.2-5.4); RED CELL DISTRIBUTION WIDTH 17.4 % (11.6-14.6); WHITE BLOOD COUNT 6.3 x1000/uL (4.5-11.0)
[2023-08-03 10:50] LABS: CALCIUM 8.1 mg/dL (8.7-10.4); CARBON DIOXIDE 26 mEq/L (21-32); CHLORIDE 91 mEq/L (98-107); GLUCOSE 132 mg/dL (70-105); PHOSPHORUS 5.8 mg/dL (2.5-4.9); POTASSIUM 5.8 mEq/L (3.5-5.1); SODIUM 129 mEq/L (136-145); UREA NITROGEN BLOOD 76 mg/dL (9-23)
[2023-08-03 10:52] LABS: CREATININE 7.1 mg/dL (0.6-1.0)
[2023-08-04] VITALS: BP 142/70; PULSE 70; RESP 19; TEMP 98.2
[2023-08-04 04:00] VITALS: BP 114/75; PULSE 69; RESP 18; TEMP 99
[2023-08-04 08:00] VITALS: BP 115/69; PULSE 67; RESP 20; TEMP 96.6
[2023-08-04] MEDS: AMLODIPINE 10MG TABLET PO SCH (09:05)
[2023-08-04 12:00] VITALS: BP 133/60; PULSE 68; RESP 20; TEMP 97.9
[2023-08-04 16:00] VITALS: BP 120/70; PULSE 68; RESP 18; TEMP 97.7
[2023-08-04 20:00] VITALS: BP 111/57; PULSE 68; RESP 18; TEMP 97.3
[2023-08-05] VITALS (11 sets, daily range): BP systolic 19–151; BP diastolic 66–125; PULSE 62–77; RESP 16–20; TEMP 97.1–99.1; O2SAT 66
[2023-08-05 06:32] LABS: HEMATOCRIT 24.3 % (36.0-48.0); MEAN CORPUSCULAR HEMOGLOBIN 30.5 pg (28.0-32.0); MEAN CORPUSCULAR VOLUME 92.3 fL (81.0-99.0); PLATELET 132 x1000/uL (130-400); RED BLOOD CELL COUNT 2.63 mill/uL (4.2-5.4); RED CELL DISTRIBUTION WIDTH 17.1 % (11.6-14.6); WHITE BLOOD COUNT 9.1 x1000/uL (4.5-11.0)
[2023-08-05 07:10] LABS: POTASSIUM 5.7 mEq/L (3.5-5.1)
[2023-08-05 07:21] LABS: CREATININE 6.9 mg/dL (0.6-1.0)
[2023-08-05] MEDS ORDERED: SYN200 PO (09:20)
[2023-08-05] MEDS ORDERED: AMLO10TA80 PO (09:20)
[2023-08-05] MEDS ORDERED: FURO40TA5 PO (09:20)
[2023-08-05] MEDS ORDERED: METO25TA6 PO (09:20)
[2023-08-05 15:06] LABS: HEPATITIS A AB IGM NEGATIVE (Negative); HEPATITIS B CORE AB IGM NEGATIVE (Negative); HEPATITIS B SURFACE ANTIGEN NEGATIVE (Negative); HEPATITIS C AB NON REACTIVE (Neg) (Negative)
== END 2023-08-06 00:17 | DRG 73 ==
LOC: ER 15:40 → EDBEDREQ 19:45 → EDBEDREQTM 19:45 → EDBEDREQ 20:45 → 7WST 21:03
PROVIDERS: ADMIT Internal Medicine Nephrology; ATTEND Internal Medicine Nephrology
PROC: 5A1D70Z Performance of Urinary Filtration, Intermittent, Less than 6 Hours Per Day (ICD-10-PCS; principal; 2023-08-01)
PROC: 5A1D70Z Performance of Urinary Filtration, Intermittent, Less than 6 Hours Per Day (ICD-10-PCS; 2023-08-03)
PROC: 5A1D70Z Performance of Urinary Filtration, Intermittent, Less than 6 Hours Per Day (ICD-10-PCS; 2023-08-05)
DX: G90.8 Other disorders of autonomic nervous system (principal); N18.6 End stage renal disease; L03.116 Cellulitis of left lower limb; L97.929 Non-pressure chronic ulcer of unspecified part of left lower leg with unspecified severity; H43.11 Vitreous hemorrhage, right eye; E87.5 Hyperkalemia; S00.03XA Contusion of scalp, initial encounter; B35.1 Tinea unguium; E03.9 Hypothyroidism, unspecified; E11.40 Type 2 diabetes mellitus with diabetic neuropathy, unspecified; E11.51 Type 2 diabetes mellitus with diabetic peripheral angiopathy without gangrene; D50.0 Iron deficiency anemia secondary to blood loss (chronic); D63.1 Anemia in chronic kidney disease; E11.22 Type 2 diabetes mellitus with diabetic chronic kidney disease; E78.00 Pure hypercholesterolemia, unspecified; I12.9 Hypertensive chronic kidney disease with stage 1 through stage 4 chronic kidney disease, or unspecified chronic kidney disease; Z99.2 Dependence on renal dialysis; Z63.72 Alcoholism and drug addiction in family; Z79.4 Long term (current) use of insulin; Z87.891 Personal history of nicotine dependence; Z90.49 Acquired absence of other specified parts of digestive tract; Z79.899 Other long term (current) drug therapy; Z79.84 Long term (current) use of oral hypoglycemic drugs; Z81.1 Family history of alcohol abuse and dependence; Z83.3 Family history of diabetes mellitus; W18.30XA Fall on same level, unspecified, initial encounter; Y93.89 Activity, other specified; Y92.89 Other specified places as the place of occurrence of the external cause; Y99.8 Other external cause status
CPT/HCPCS: 36415; 71045; 72128; 80048; 80053; 82962; 83036; 83735; 84100; 84439; 84443; 85025; 85027; 86705; 86706; 86709; 87340; 90935; 93005; 93971; 97162; 97166; 97530; 97535; 99285; J0610; J1815; J2270; J2405

== ENCOUNTER 2023-08-14 20:26 | Inpatient (IN) | payer OTHER, MEDICAID ==
[~2023-08-14] VITALS: Ht 157.5 cm; Wt 88.5 kg
[~2023-08-14 20:26] MED LIST changes: +AMLO10TA80 PO; +FURO40TA5 PO; -METO-385 MT; -METO-385 PO; +METO25TA6 PO; +SYN200 PO
[2023-08-14] MEDS: LEVETIRACETAM 500MG PREMIX 100 ML IV ONE (23:00)
[2023-08-14] MEDS ORDERED: MORPHINE SULFATE 4 MG/ML INJ (FOR IV/IM USE) IV ONE (23:00)
[2023-08-14] MEDS: METOCLOPRAMIDE HCL 10MG/2ML VIAL IV ONE (23:00)
[2023-08-14 23:21] LABS: ALANINE AMINOTRANSFERASE 19 IU/L (10-49); ALBUMIN 4.2 g/dL (3.2-4.8); ASPARTATE AMINOTRANSFERASE 33 IU/L (<34); BASOPHILS % 0.6 % (0.0-2.0); BILIRUBIN TOTAL 0.5 mg/dL (0.1-1.0); CALCIUM 8.1 mg/dL (8.7-10.4); CARBON DIOXIDE 26 mEq/L (21-32); CHLORIDE 98 mEq/L (98-107); EOSINOPHILS % 3.8 % (0.0-5.0); GLUCOSE 81 mg/dL (70-105); HEMATOCRIT. 26.7 % (36.0-48.0); HEMOGLOBIN. 8.9 g/dL (12.0-16.0); LYMPHOCYTES % 13.9 % (20.0-50.0); MEAN CORPUSCULAR HEMOGLOBIN 31.7 pg (28.0-32.0); MEAN CORPUSCULAR HGB CONC 33.5 g/dL (31.0-37.0); MEAN CORPUSCULAR VOLUME 94.7 fL (81.0-99.0); MEAN PLATELET VOLUME 9.1 fl (7.4-10.4); MONOCYTES % 9.9 % (2.0-8.0); NEUTROPHILS % 71.8 % (40.0-76.0); PLATELET 162 x1000/uL (130-400); POTASSIUM 4.8 mEq/L (3.5-5.1); PROTEIN TOTAL 8.4 g/dL (6.0-8.3); RED BLOOD CELL COUNT 2.82 mill/uL (4.2-5.4); RED CELL DISTRIBUTION WIDTH 17.6 % (11.6-14.6); SODIUM 133 mEq/L (136-145); UREA NITROGEN BLOOD 50 mg/dL (9-23); WHITE BLOOD COUNT 9.7 x1000/uL (4.5-11.0)
[2023-08-14 23:22] LABS: CREATININE 6.1 mg/dL (0.6-1.0)
[2023-08-14 23:26] LABS: INR 1.1; PROTHROMBIN TIME 11.9 sec (9.6-11.0)
[2023-08-15] MEDS: DIPHENHYDRAMINE 50MG/ML VIAL IV ONE (00:50)
[2023-08-15] MEDS: ACETAMINOPHEN 325MG TABLET PO PRN (10:12)
[2023-08-15 20:00] VITALS: BP_SYST 155; BP_SYST 156; BP_DIAS 92; BP_DIAS 97; PULSE 69; RESP 15; TEMP 97.9
[2023-08-15] MEDS ORDERED: ASPI-1497 MT (21:03)
[2023-08-15] MEDS ORDERED: METO-539 MT (21:03)
[2023-08-15] MEDS ORDERED: NALOXONE HCL 0.4MG/ML VIAL IV PRN (22:30)
[2023-08-15 22:56] VITALS: BP 114/70; PULSE 74; RESP 15
[2023-08-15] MEDS: GABAPENTIN 100MG CAPSULE PO SCH (22:57)
[2023-08-15] MEDS: ATORVASTATIN CALCIUM 40MG TABLET PO SCH (22:57)
[2023-08-15] MEDS: METOPROLOL TARTRATE 50MG TABLET PO SCH (22:58)
[2023-08-15] MEDS: LEVETIRACETAM 500MG TABLET PO SCH (22:58)
[2023-08-15] MEDS: HYDROCODONE/ACETAMINOPHEN 5/325MG TABLET PO PRN (22:59)
[2023-08-15] MEDS ORDERED: DEXTROSE 50% WATER 50ML SYRINGE IV PRN (23:45)
[2023-08-16] VITALS (10 sets, daily range): BP systolic 104–134; BP diastolic 60–74; PULSE 61–72; RESP 10–23; TEMP 97.6–98.7
[2023-08-16] MEDS: LEVOTHYROXINE SODIUM 150MCG TABLET PO SCH (06:56)
[2023-08-16] MEDS: BLOOD SUGAR DIAGNOSTIC STRIP TEST SCH (06:56)
[2023-08-16 07:13] LABS: BASOPHILS % 0.6 % (0.0-2.0); EOSINOPHILS % 4.3 % (0.0-5.0); HEMATOCRIT. 26.7 % (36.0-48.0); HEMOGLOBIN. 8.9 g/dL (12.0-16.0); LYMPHOCYTES % 14.5 % (20.0-50.0); MEAN CORPUSCULAR HEMOGLOBIN 31.3 pg (28.0-32.0); MEAN CORPUSCULAR HGB CONC 33.3 g/dL (31.0-37.0); MEAN CORPUSCULAR VOLUME 93.9 fL (81.0-99.0); MEAN PLATELET VOLUME 8.6 fl (7.4-10.4); NEUTROPHILS % 70.6 % (40.0-76.0); PLATELET 174 x1000/uL (130-400); RED BLOOD CELL COUNT 2.84 mill/uL (4.2-5.4); RED CELL DISTRIBUTION WIDTH 17.5 % (11.6-14.6); WHITE BLOOD COUNT 7.2 x1000/uL (4.5-11.0)
[2023-08-16] MEDS: INSULIN LISPRO 100 UNITS/ML SUBCUT SCH (07:20)
[2023-08-16 07:25] LABS: ALANINE AMINOTRANSFERASE 13 IU/L (10-49); ASPARTATE AMINOTRANSFERASE 24 IU/L (<34); BILIRUBIN DIRECT 0.3 mg/dL (<=3.0); BILIRUBIN TOTAL 0.5 mg/dL (0.1-1.0); CALCIUM 7.8 mg/dL (8.7-10.4); CARBON DIOXIDE 22 mEq/L (21-32); CHLORIDE 97 mEq/L (98-107); GLUCOSE 131 mg/dL (70-105); POTASSIUM 5.5 mEq/L (3.5-5.1); SODIUM 132 mEq/L (136-145); UREA NITROGEN BLOOD 54 mg/dL (9-23)
[2023-08-16 07:30] LABS: CREATININE 6.8 mg/dL (0.6-1.0)
[2023-08-16] MEDS: FOLIC ACID/VITAMIN B COMP W-C TABLET PO SCH (09:40)
[2023-08-16] MEDS: AMLODIPINE 10MG TABLET PO SCH (09:41)
[2023-08-16] MEDS: SEVELAMER CARBONATE 800 MG TABLET PO SCH (09:42)
[2023-08-16 15:41] LABS: BASOPHILS % 0.8 % (0.0-2.0); EOSINOPHILS % 4.2 % (0.0-5.0); HEMATOCRIT. 27.1 % (36.0-48.0); HEMOGLOBIN. 8.8 g/dL (12.0-16.0); LYMPHOCYTES % 13.3 % (20.0-50.0); MEAN CORPUSCULAR HEMOGLOBIN 30.9 pg (28.0-32.0); MEAN CORPUSCULAR HGB CONC 32.5 g/dL (31.0-37.0); MEAN CORPUSCULAR VOLUME 95.2 fL (81.0-99.0); MEAN PLATELET VOLUME 8.4 fl (7.4-10.4); MONOCYTES % 10.4 % (2.0-8.0); NEUTROPHILS % 71.3 % (40.0-76.0); PLATELET 183 x1000/uL (130-400); RED BLOOD CELL COUNT 2.85 mill/uL (4.2-5.4); RED CELL DISTRIBUTION WIDTH 17.9 % (11.6-14.6); WHITE BLOOD COUNT 8.6 x1000/uL (4.5-11.0)
[2023-08-16 16:33] LABS: HEPATITIS A AB IGM NEGATIVE (Negative); HEPATITIS B CORE AB IGM NEGATIVE (Negative); HEPATITIS B SURFACE ANTIGEN NEGATIVE (Negative); HEPATITIS C AB NON REACTIVE (Neg) (Negative)
[2023-08-16] MEDS: SODIUM HYPOCHLORITE SOLUTION (0.5%)FULL STRENGTH TOP SCH (20:12)
[2023-08-17] VITALS (7 sets, daily range): BP systolic 117–147; BP diastolic 59–100; PULSE 57–69; RESP 7–24; TEMP 97.6–98.6
[2023-08-18] VITALS (9 sets, daily range): BP systolic 111–135; BP diastolic 50–73; PULSE 56–70; RESP 9–22; TEMP 97.2–98.7
[2023-08-18] MEDS: ONDANSETRON HCL 4MG/2ML INJ IV PRN (00:33)
[2023-08-19] VITALS: BP 125/63; PULSE 71; RESP 16; TEMP 98
[2023-08-19 04:00] VITALS: BP 143/88; PULSE 107; RESP 15; TEMP 97.8
[2023-08-19 08:00] VITALS: BP 122/68; PULSE 58; RESP 18; TEMP 97.8
[2023-08-19 12:00] VITALS: BP 128/63; PULSE 58; RESP 14; TEMP 98
[2023-08-19 20:00] VITALS: BP 146/83; PULSE 94; RESP 20; TEMP 98.4
[2023-08-20] VITALS (14 sets, daily range): BP systolic 119–147; BP diastolic 64–98; PULSE 60–110; RESP 13–25; TEMP 97.4–98.6
[2023-08-20 09:24] LABS: BASOPHILS % 0.8 % (0.0-2.0); EOSINOPHILS % 5.4 % (0.0-5.0); HEMATOCRIT. 27.2 % (36.0-48.0); HEMOGLOBIN. 8.9 g/dL (12.0-16.0); LYMPHOCYTES % 19.7 % (20.0-50.0); MEAN CORPUSCULAR HEMOGLOBIN 31.4 pg (28.0-32.0); MEAN CORPUSCULAR HGB CONC 32.8 g/dL (31.0-37.0); MEAN CORPUSCULAR VOLUME 95.7 fL (81.0-99.0); MEAN PLATELET VOLUME 8.8 fl (7.4-10.4); MONOCYTES % 12.3 % (2.0-8.0); NEUTROPHILS % 61.8 % (40.0-76.0); PLATELET 183 x1000/uL (130-400); RED BLOOD CELL COUNT 2.85 mill/uL (4.2-5.4); RED CELL DISTRIBUTION WIDTH 17.4 % (11.6-14.6); WHITE BLOOD COUNT 6.4 x1000/uL (4.5-11.0)
[2023-08-20 09:45] LABS: CALCIUM 7.9 mg/dL (8.7-10.4)
[2023-08-20 09:48] LABS: CREATININE 7.2 mg/dL (0.6-1.0); POTASSIUM 6.3 mEq/L (3.5-5.1)
[2023-08-20] MEDS: DIPHENHYDRAMINE 50MG/ML VIAL IV PRN (21:15)
[2023-08-21] VITALS: BP 135/72; PULSE 70; RESP 16; TEMP 98.1
[2023-08-21 04:00] VITALS: BP 128/101; PULSE 62; RESP 14; TEMP 98.2
[2023-08-21 07:22] LABS: HEMATOCRIT. 26.3 % (36.0-48.0); HEMOGLOBIN. 8.8 g/dL (12.0-16.0); LYMPHOCYTES % 17.6 % (20.0-50.0); MEAN CORPUSCULAR HGB CONC 33.3 g/dL (31.0-37.0); MEAN CORPUSCULAR VOLUME 93.3 fL (81.0-99.0); MEAN PLATELET VOLUME 8.6 fl (7.4-10.4); MONOCYTES % 11.7 % (2.0-8.0); NEUTROPHILS % 64.7 % (40.0-76.0); PLATELET 153 x1000/uL (130-400); RED BLOOD CELL COUNT 2.82 mill/uL (4.2-5.4); RED CELL DISTRIBUTION WIDTH 16.8 % (11.6-14.6); WHITE BLOOD COUNT 5.7 x1000/uL (4.5-11.0)
[2023-08-21 07:30] LABS: CALCIUM 8.2 mg/dL (8.7-10.4); POTASSIUM 5.5 mEq/L (3.5-5.1)
[2023-08-21 07:41] LABS: CREATININE 6.5 mg/dL (0.6-1.0)
[2023-08-21 08:00] VITALS: BP 142/66; PULSE 61; RESP 17; TEMP 98.4
[2023-08-21 16:00] VITALS: BP 125/67; PULSE 58; RESP 16; TEMP 97.6
[2023-08-21 20:00] VITALS: BP 134/90; PULSE 57; RESP 15; TEMP 98.2
[2023-08-22] VITALS (14 sets, daily range): BP systolic 114–150; BP diastolic 65–91; PULSE 57–88; RESP 12–21; TEMP 97.5–98.7; O2SAT 98
[2023-08-22 07:19] LABS: BASOPHILS % 1.3 % (0.0-2.0); EOSINOPHILS % 4.6 % (0.0-5.0); HEMATOCRIT. 28.3 % (36.0-48.0); HEMOGLOBIN. 9.5 g/dL (12.0-16.0); LYMPHOCYTES % 17.4 % (20.0-50.0); MEAN CORPUSCULAR HEMOGLOBIN 31.2 pg (28.0-32.0); MEAN CORPUSCULAR HGB CONC 33.4 g/dL (31.0-37.0); MEAN CORPUSCULAR VOLUME 93.3 fL (81.0-99.0); MEAN PLATELET VOLUME 8.9 fl (7.4-10.4); NEUTROPHILS % 64.7 % (40.0-76.0); PLATELET 157 x1000/uL (130-400); RED BLOOD CELL COUNT 3.04 mill/uL (4.2-5.4); RED CELL DISTRIBUTION WIDTH 17.4 % (11.6-14.6); WHITE BLOOD COUNT 6.6 x1000/uL (4.5-11.0)
[2023-08-22 07:43] LABS: CALCIUM 7.9 mg/dL (8.7-10.4); POTASSIUM 6.1 mEq/L (3.5-5.1)
[2023-08-23] VITALS (12 sets, daily range): BP systolic 111–152; BP diastolic 59–85; PULSE 66–97; RESP 9–20; TEMP 97.6–98.7
[2023-08-24] VITALS (15 sets, daily range): BP systolic 111–143; BP diastolic 59–92; PULSE 52–74; RESP 11–23; TEMP 97.6–98.2
[2023-08-25] VITALS (9 sets, daily range): BP systolic 117–157; BP diastolic 69–99; PULSE 58–69; RESP 12–20; TEMP 97.3–98.6
[2023-08-26] VITALS (13 sets, daily range): BP systolic 103–155; BP diastolic 66–90; PULSE 58–67; RESP 14–20; TEMP 97.2–98.7
[2023-08-26 13:19] LABS: BASOPHILS % 1.1 % (0.0-2.0); EOSINOPHILS % 5.2 % (0.0-5.0); HEMATOCRIT. 26.9 % (36.0-48.0); HEMOGLOBIN. 8.8 g/dL (12.0-16.0); LYMPHOCYTES % 22.5 % (20.0-50.0); MEAN CORPUSCULAR HEMOGLOBIN 30.9 pg (28.0-32.0); MEAN CORPUSCULAR HGB CONC 32.5 g/dL (31.0-37.0); MEAN PLATELET VOLUME 8.9 fl (7.4-10.4); MONOCYTES % 12.9 % (2.0-8.0); NEUTROPHILS % 58.3 % (40.0-76.0); PLATELET 138 x1000/uL (130-400); RED BLOOD CELL COUNT 2.84 mill/uL (4.2-5.4); RED CELL DISTRIBUTION WIDTH 16.7 % (11.6-14.6); WHITE BLOOD COUNT 5.5 x1000/uL (4.5-11.0)
[2023-08-26 13:26] LABS: CALCIUM 7.7 mg/dL (8.7-10.4)
[2023-08-26 13:29] LABS: CREATININE 7.1 mg/dL (0.6-1.0)
[2023-08-27 00:05] VITALS: BP 125/78; PULSE 62; RESP 15; TEMP 97.8
[2023-08-27 04:05] VITALS: PULSE 59; RESP 16; TEMP 97.3
[2023-08-27 08:00] VITALS: BP 120/75; PULSE 58; RESP 16; TEMP 98.1
[2023-08-27 12:00] VITALS: BP 121/66; PULSE 60; RESP 16; TEMP 98
[2023-08-27 16:00] VITALS: BP 132/67; PULSE 91; RESP 14; TEMP 98.3
[2023-08-27 20:05] VITALS: BP 122/68; PULSE 65; RESP 15; TEMP 98
[2023-08-28 00:05] VITALS: BP 126/77; PULSE 67; RESP 16; TEMP 97.9
[2023-08-28 04:05] VITALS: BP 133/97; PULSE 68; RESP 17; TEMP 97.9
[2023-08-28 08:00] VITALS: BP 118/94; PULSE 56; RESP 19; TEMP 97.6
[2023-08-28 16:00] VITALS: BP 138/69; PULSE 54; RESP 17; TEMP 97.8
[2023-08-28 20:00] VITALS: BP 122/67; PULSE 56; RESP 16; TEMP 96.3
[2023-08-29 04:00] VITALS: BP 90/52; PULSE 56; RESP 16; TEMP 97.5
[2023-08-29] MEDS: HYDROCODONE/ACETAMINOPHEN 10/325MG TABLET PO PRN (06:02)
[2023-08-29 08:00] VITALS: BP 104/55; PULSE 54; RESP 18; TEMP 97.5
[2023-08-29 12:00] VITALS: BP 129/60; PULSE 48; RESP 18; TEMP 97.9
[2023-08-29] MEDS ORDERED: CALCIUM ACETATE 667MG CAPSULE PO ONE (13:00)
[2023-08-29 16:00] VITALS: BP 131/64; PULSE 55; RESP 19; TEMP 98.1
[2023-08-29 20:00] VITALS: BP 135/63; PULSE 58; RESP 20; TEMP 97.7
[2023-08-30] VITALS (11 sets, daily range): BP systolic 98–132; BP diastolic 40–84; PULSE 51–67; RESP 16–20; TEMP 97.2–97.8; O2SAT 98
[2023-08-30 07:10] LABS: BASOPHILS % 1.2 % (0.0-2.0); EOSINOPHILS % 7.3 % (0.0-5.0); LYMPHOCYTES % 21.3 % (20.0-50.0); MEAN CORPUSCULAR HEMOGLOBIN 31.3 pg (28.0-32.0); MEAN CORPUSCULAR HGB CONC 33.1 g/dL (31.0-37.0); MEAN CORPUSCULAR VOLUME 94.6 fL (81.0-99.0); MEAN PLATELET VOLUME 9.3 fl (7.4-10.4); MONOCYTES % 12.2 % (2.0-8.0); PLATELET 119 x1000/uL (130-400); RED BLOOD CELL COUNT 2.86 mill/uL (4.2-5.4); RED CELL DISTRIBUTION WIDTH 17.1 % (11.6-14.6); WHITE BLOOD COUNT 4.9 x1000/uL (4.5-11.0)
[2023-08-30 07:46] LABS: CALCIUM 8.2 mg/dL (8.7-10.4); CARBON DIOXIDE 21 mEq/L (21-32); CHLORIDE 95 mEq/L (98-107); GLUCOSE 100 mg/dL (70-105); PHOSPHORUS 6.9 mg/dL (2.5-4.9); SODIUM 129 mEq/L (136-145); UREA NITROGEN BLOOD 49 mg/dL (9-23)
[2023-08-30 08:19] LABS: CREATININE 7.9 mg/dL (0.6-1.0); POTASSIUM 6.6 mEq/L (3.5-5.1)
[2023-08-30] MEDS: SODIUM POLYSTYRENE SULFONATE 15 G/60 ML BOT PO SCH (11:03)
[2023-08-30] MEDS ORDERED: NALOXONE HCL 0.4MG/ML VIAL IV PRN (17:30)
== END 2023-08-30 19:00 | disposition home health service (06) | DRG 85 ==
LOC: ER 20:54 → 3WST 08-15 20:12 → 6EST 08-28 14:12
PROVIDERS: ADMIT Internal Medicine; ATTEND Internal Medicine
PROC: 5A1D70Z Performance of Urinary Filtration, Intermittent, Less than 6 Hours Per Day (ICD-10-PCS; principal; 2023-08-16)
PROC: 5A1D70Z Performance of Urinary Filtration, Intermittent, Less than 6 Hours Per Day (ICD-10-PCS; 2023-08-18)
PROC: 5A1D70Z Performance of Urinary Filtration, Intermittent, Less than 6 Hours Per Day (ICD-10-PCS; 2023-08-20)
PROC: 5A1D70Z Performance of Urinary Filtration, Intermittent, Less than 6 Hours Per Day (ICD-10-PCS; 2023-08-22)
PROC: 5A1D70Z Performance of Urinary Filtration, Intermittent, Less than 6 Hours Per Day (ICD-10-PCS; 2023-08-24)
PROC: 5A1D70Z Performance of Urinary Filtration, Intermittent, Less than 6 Hours Per Day (ICD-10-PCS; 2023-08-26)
PROC: 5A1D70Z Performance of Urinary Filtration, Intermittent, Less than 6 Hours Per Day (ICD-10-PCS; 2023-08-30)
PROC: 5A1D70Z Performance of Urinary Filtration, Intermittent, Less than 6 Hours Per Day (ICD-10-PCS; 2023-08-30)
DX: S06.5X0A Traumatic subdural hemorrhage without loss of consciousness, initial encounter (principal); N18.6 End stage renal disease; I12.0 Hypertensive chronic kidney disease with stage 5 chronic kidney disease or end stage renal disease; L03.116 Cellulitis of left lower limb; D63.1 Anemia in chronic kidney disease; E11.22 Type 2 diabetes mellitus with diabetic chronic kidney disease; E11.40 Type 2 diabetes mellitus with diabetic neuropathy, unspecified; Z99.2 Dependence on renal dialysis; E66.9 Obesity, unspecified; E03.9 Hypothyroidism, unspecified; Z68.35 Body mass index [BMI] 35.0-35.9, adult; L98.492 Non-pressure chronic ulcer of skin of other sites with fat layer exposed; E87.5 Hyperkalemia; S90.31XA Contusion of right foot, initial encounter; G47.00 Insomnia, unspecified; S00.03XA Contusion of scalp, initial encounter; E87.70 Fluid overload, unspecified; E78.00 Pure hypercholesterolemia, unspecified; W18.30XA Fall on same level, unspecified, initial encounter; Y93.89 Activity, other specified; Y92.89 Other specified places as the place of occurrence of the external cause; Y99.8 Other external cause status
CPT/HCPCS: 36415; 80048; 80053; 80076; 82962; 83036; 83735; 83880; 83970; 84100; 84443; 85025; 86705; 86709; 86850; 86900; 87340; 90935; 96365; 96375; 97110; 97116; 97162; 97166; 97530; 97535; 99285; J1200; J1815; J1953; J2270; J2405; J2765